=== PATIENT | female | born 1950 | race Caucasian/White ===

== ENCOUNTER 2017-09-21 12:00 | Observation (INO) | payer OTHER, SELFPAY ==
--- OUTSIDE RECORDS SUMMARY | 2017-09-21 12:03 | XMS REPORT | Clinical Summary ---
:1950 Author Organization [facility] Address [address] [place] [address] Care Team Providers Name Role Phone Brandon Mullins MD Primary Care Provider Allergies Active Allergy Reactions Severity Noted Date Comments Codeine Other (See Comments) High 07/17/2017 nausea Penicillins Rash Low 07/17/2017 Current Medications Prescription Sig. Disp. Refills Start Date End Date Status oxybutynin (DITROPAN) 06/08/2017 Active 5 MG tablet ipratropium-albuterol 06/08/2017 Active (DUO-NEB) 0.5-2.5 mg/mL nebulizer venlafaxine XR 06/08/2017 Active (EFFEXOR XR) 37.5 MG 24 hr capsule oxyCODone 06/13/2017 Active (ROXICODONE) 10 MG tablet atorvastatin Take 10 mg by Active (LIPITOR) 10 MG mouth daily. tablet ondansetron (ZOFRAN) Take 4 mg by Active 4 MG tablet mouth every 8 (eight) hours as needed for nausea or vomiting. metoprolol tartrate Take 0.5 30 tablet 0 09/09/2017 10/09/2017 Active (LOPRESSOR) 25 mg tablets (12.5 tablet mg total) by mouth 2 (two) times a day for 30 days. gabapentin Take 1 capsule 21 capsule 0 09/09/2017 09/16/2017 (NEURONTIN) 300 mg (300 mg total) capsule by mouth 3 (three) times a day for 7 days. Active Problems Problem Noted Date Malignant neoplasm of upper lobe of right lung 09/07/2017 Accelerated hypertension 09/07/2017 History of stroke 09/07/2017 History of CAB 09/07/2017 Adenocarcinoma of right lung 09/07/2017 s/p RUL wedge resection with MLND and lysis of adhesions 09/07/2017 Rheumatoid arthritis Overview: severe Encounters Date Type Specialty Care Team Description 09/14/2017 Telephone Cardiothoracic Surgery Lilliana Ch MA 09/10/2017 Telephone Cardiothoracic Surgery Gabrielle Lyman, LUIS ALBERTO 09/09/2017 Patient Outreach Quality Gay Holden RN 09/07/2017 Hospital Cardiology Mustapha David Malignant neoplasm - Encounter MD Jethro of upper lobe of 09/09/2017 right lung 09/07/2017 Anesthesia Event Cardiothoracic Surgery Noel Perkins MD 09/07/2017 Procedure Pass Cardiothoracic Surgery 09/07/2017 Surgery Cardiothoracic Surgery Mustapha David RIGHT ROBOTIC MD Jethro ASSISTED THORACOSCOPIC RIGHT UPPER LOBE WEDGE RESECTION, MEDIASTINAL LYMPH NODE DISSECTION, LYSIS OF ADHESION 09/05/2017 [facility] Gastroenterology Vilma Holden Non-intractable Encounter MD Rachel vomiting with nausea, unspecified vomiting type (Primary Dx) 09/05/2017 Anesthesia Event Gastroenterology Jethro Crenshaw MD 09/05/2017 Procedure Pass Gastroenterology 09/05/2017 Surgery Gastroenterology Vilma Holden MD 09/03/2017 Telephone Cardiothoracic Surgery Gabrielle Lyman, AMBULATORY CARE 08/30/2017 [facility] Cardiothoracic Surgery Mustapha David Encounter MD Jethro 08/30/2017 Transcribe Orders Cardiothoracic Surgery Mustapha David Nausea and vomiting, MD Jethro intractability of vomiting not specified, unspecified vomiting type (Primary Dx) 08/30/2017 Anesthesia Event Cardiothoracic Surgery Bautista St MD 08/30/2017 Procedure Pass Cardiothoracic Surgery 08/30/2017 Surgery Cardiothoracic Surgery Mustapha David Canceled RIGHT MD Jethro ROBOTIC ASSISTED THORACOSCOPIC, RIGHT UPPER LOBE LOBECTOMY, MEDIASTINAL LYMPH NODE DISSECTION 08/29/2017 Telephone Cardiothoracic Surgery Gabrielle Lyman, AMBULATORY CARE 08/27/2017 Telephone General Surgery Mustapha David MD 08/21/2017 Lab Lab Mustapha David Malignant neoplasm of upper lobe of right lung; MD Jethro LAD (lymphadenopathy), axillary; Nonintractable headache, unspecified chronicity pattern, unspecified headache type; Pre-op testing 08/21/2017 Office Visit General Surgery June Angel MD (Primary Dx) 08/21/2017 Orders Only Cardiothoracic Surgery Lucia Modi MD 08/17/2017 Hospital Radiology Mustapha David Lung nodule Encounter MD Jethro 08/17/2017 Office Visit Cardiothoracic Surgery Mustapha David Malignant neoplasm of upper lobe of right lung (Primary Dx); MD Jethro LAD (lymphadenopathy), axillary; Nonintractable headache, unspecified chronicity pattern, unspecified headache type; Pre-op testing 08/17/2017 Ancillary Orders Cardiothoracic Surgery Mustapha David Lung nodule MD Jethro 08/16/2017 Orders Only Cardiothoracic Surgery Lucia Modi MD 08/13/2017 Hospital Radiology Natalio Aden Encounter MD Micha (lymphadenopathy), axillary 08/13/2017 Hospital Radiology Natalio Aden Encounter MD Micha (lymphadenopathy), axillary 08/13/2017 Hospital Radiology Natalio Aden Encounter MD Micha (lymphadenopathy), axillary 08/13/2017 Hospital Radiology Mustapha David Lung mass (Primary Dx); Encounter MD Jethro LAD (lymphadenopathy), axillary 08/13/2017 Ancillary Orders Cardiothoracic Surgery JoannMustapha LAD MD Jethro (lymphadenopathy), axillary 08/09/2017 Hospital Radiology Mustapha David Canceled (Patient) Encounter MD Jethro 08/09/2017 Telephone Cardiothoracic Surgery Gricelda Sidhu MA 08/06/2017 Telephone Cardiothoracic Surgery Aidee Tanner MA 08/02/2017 Transcribe Orders Cardiothoracic Surgery Mustapha David Visit for screening MD Jethro mammogram (Primary Dx) 08/02/2017 Telephone Radiology Evette Monsivais, WESLEY 08/01/2017 Transcribe Orders Cardiothoracic Surgery Mustapha David Lung nodule ( Primary Dx); MD Jethro LAD (lymphadenopathy), axillary 07/31/2017 Lab Lab Mustapha David Lung nodule; MD Jethro Axillary lymphadenopathy; Pre-operative laboratory examination; SOB (shortness of breath) 07/31/2017 Hospital Radiology Mustapha David Encounter MD Jethro 07/31/2017 Office Visit Cardiothoracic Surgery Mustapha David Lung nodule ( Primary Dx); MD Jethro Axillary lymphadenopathy; Pre-operative laboratory examination; SOB (shortness of breath) 07/31/2017 Ancillary Orders Radiology Mustapha David MD 07/31/2017 Orders Only Cardiothoracic Surgery Lucia Modi MD 07/30/2017 Orders Only Cardiothoracic Surgery Lucia Modi MD 07/19/2017 Telephone Cardiothoracic Surgery Gabrielle Lyman, LUIS ALBERTO 07/19/2017 Telephone Cardiothoracic Surgery Aidee Tanner MA 07/18/2017 Transcribe Orders Cardiothoracic Surgery Mustapha David Lung nodule ( Primary MD Jethro Dx) 07/18/2017 Telephone Cardiothoracic Surgery Gabrielle Lyman, LUIS ALBERTO 07/18/2017 Telephone Cardiothoracic Surgery Gabrielle Lyman, LUIS ALBERTO 07/17/2017 Hospital Radiology Mustapha David MD 07/17/2017 Office Visit Cardiothoracic Surgery Joann Mustapha Lung nodule ( Primary MD Jethro Dx) 07/17/2017 Ancillary Orders Radiology Mustapha David MD 07/13/2017 Orders Only Cardiothoracic Surgery Lucia Modi MD after 09/20/2016 Family History Medical History Relation Name Comments Hypertension Father Heart attack Maternal Grandmother Hypertension Mother Arthritis Sister Relation Name Status Comments Father Maternal Grandmother Mother Sister fibromyalgia Social History Tobacco Use Types Packs/Day Years Used Date Current Every Day Smoker Cigarettes 1.5 50 Smokeless Tobacco: Never Used Tobacco Cessation: Counseling Given: Yes Comments: trying to quit Alcohol Use Drinks/Week oz/Week Comments No Sex Assigned at Date Recorded Not on file Last Filed Vital Signs Vital Sign Reading Time Taken Blood Pressure 142/66 09/09/2017 6:56 AM CDT Pulse 63 09/09/2017 6:56 AM CDT Temperature 36.7 C (98.1 F) 09/09/2017 6:56 AM CDT Respiratory Rate 15 09/09/2017 6:56 AM CDT Oxygen Saturation 90% 09/09/2017 6:56 AM CDT Inhaled Oxygen Concentration - - Weight 70.3 kg (155 lb) 09/09/2017 5:35 AM CDT Height 165.1 cm (5' 5") 09/07/2017 10:10 AM CDT Body Mass Index 25.79 09/09/2017 5:35 AM CDT Plan of Treatment Date Type Specialty Care Team Description 10/16/2017 Office Visit Cardiothoracic Surgery Mustapha David MD [address] [facility] [address] [place] [address] Gabrielle Lyman, AMBULATORY CARE [address] [facility] [address] [place] [address] Health Maintenance Due Date Last Done Comments BREAST CANCER SCREENING 1998 COLON CANCER SCREENING 1998 SHINGRIX VACCINE (#1) 1998 ZOSTER VACCINE 2008 PNEUMOCOCCAL POLYSACCHARIDE VACCINE AGE 65 AND OVER 2013 PNEUMOCOCCAL-13 2013 INFLUENZA VACCINE 09/19/2017 Implants Implanted Type Area Pottery Striper Device Expiration Model / Identifier Date Serial / Lot Kit Selnt Fibrin [facility] [facility] 5ml Evicel - [id number] Surgical N/A: N/A ETHICON - 03/21/2019 [id number] / Implanted: 09/07/2017 (Quantity not on file) Implants; / Expanders; [id number] Extenders; Surgical Wires Procedures Procedure Name Priority Date/Time Associated Comments Diagnosis XR CHEST 1 VW PORTABLE Routine 09/09/2017 Results for 6:33 AM CDT this procedure are in the results section. ESTIMATED GFR Routine 09/09/2017 Results for 6:05 AM CDT this procedure are in the results section. MAGNESIUM LEVEL Routine 09/09/2017 Results for 6:05 AM CDT this procedure are in the results section. CBC HEMOGRAM Routine 09/09/2017 Results for 6:05 AM CDT this procedure are in the results section. BASIC METABOLIC PANEL Routine 09/09/2017 Results for 6:05 AM CDT this procedure are in the results section. POC GLUCOSE Routine 09/08/2017 Results for 5:17 PM CDT this procedure are in the results section. XR CHEST 1 VW PORTABLE Routine 09/08/2017 Results for 11:18 AM CDT this procedure are in the results section. POC GLUCOSE Routine 09/08/2017 Results for 7:25 AM CDT this procedure are in the results section. XR CHEST 1 VW PORTABLE Routine 09/08/2017 Results for 6:12 AM CDT this procedure are in the results section. ESTIMATED GFR Routine 09/08/2017 Results for 3:05 AM CDT this procedure are in the results section. PHOSPHORUS LEVEL Routine 09/08/2017 Results for 3:05 AM CDT this procedure are in the results section. MAGNESIUM LEVEL Routine 09/08/2017 Results for 3:05 AM CDT this procedure are in the results section. IONIZED CALCIUM Routine 09/08/2017 Results for 3:05 AM CDT this procedure are in the results section. BASIC METABOLIC PANEL Routine 09/08/2017 Results for 3:05 AM CDT this procedure are in the results section. PROTHROMBIN TIME WITH INR Routine 09/08/2017 Results for 2:21 AM CDT this procedure are in the results section. PARTIAL THROMBOPLASTIN TIME Routine 09/08/2017 Results for (PTT) 2:21 AM CDT this procedure are in the results section. CBC HEMOGRAM Routine 09/08/2017 Results for 2:21 AM CDT this procedure are in the results section. POC GLUCOSE Routine 09/07/2017 Results for 11:43 PM CDT this procedure are in the results section. POC GLUCOSE Routine 09/07/2017 Results for 10:04 PM CDT this procedure are in the results section. ESTIMATED GFR STAT 09/07/2017 Results for 9:45 PM CDT this procedure are in the results section. TYPE AND SCREEN STAT 09/07/2017 Results for 9:45 PM CDT this procedure are in the results section. PROTHROMBIN TIME WITH INR STAT 09/07/2017 Results for 9:45 PM CDT this procedure are in the results section. PHOSPHORUS LEVEL STAT 09/07/2017 Results for 9:45 PM CDT this procedure are in the results section. PARTIAL THROMBOPLASTIN TIME STAT 09/07/2017 Results for (PTT) 9:45 PM CDT this procedure are in the results section. MAGNESIUM LEVEL STAT 09/07/2017 Results for 9:45 PM CDT this procedure are in the results section. IONIZED CALCIUM STAT 09/07/2017 Results for 9:45 PM CDT this procedure are in the results section. FIBRINOGEN STAT 09/07/2017 Results for 9:45 PM CDT this procedure are in the results section. CBC HEMOGRAM STAT 09/07/2017 Results for 9:45 PM CDT this procedure are in the results section. BASIC METABOLIC PANEL STAT 09/07/2017 Results for 9:45 PM CDT this procedure are in the results section. XR CHEST 1 VW PORTABLE STAT 09/07/2017 Results for 5:14 PM CDT this procedure are in the results section. GLUCOSE LEVEL, SYRINGE STAT 09/07/2017 Results for 3:40 PM CDT this procedure are in the results section. HEMOGLOBIN, SYRINGE STAT 09/07/2017 Results for 3:40 PM CDT this procedure are in the results section. IONIZED CALCIUM, ARTERIAL STAT 09/07/2017 Results for 3:40 PM CDT this procedure are in the results section. POTASSIUM, SYRINGE STAT 09/07/2017 Results for 3:40 PM CDT this procedure are in the results section. SODIUM LEVEL, SYRINGE STAT 09/07/2017 Results for 3:40 PM CDT this procedure are in the results section. ARTERIAL BLOOD GAS, CORRECTED STAT 09/07/2017 Results for 3:40 PM CDT this procedure are in the results section. SURGICAL PATHOLOGY REQUEST Routine 09/07/2017 Results for 2:39 PM CDT this procedure are in the results section. GLUCOSE LEVEL, SYRINGE STAT 09/07/2017 Results for 2:13 PM CDT this procedure are in the results section. HEMOGLOBIN, SYRINGE STAT 09/07/2017 Results for 2:13 PM CDT this procedure are in the results section. IONIZED CALCIUM, ARTERIAL STAT 09/07/2017 Results for 2:13 PM CDT this procedure are in the results section. POTASSIUM, SYRINGE STAT 09/07/2017 Results for 2:13 PM CDT this procedure are in the results section. SODIUM LEVEL, SYRINGE STAT 09/07/2017 Results for 2:13 PM CDT this procedure are in the results section. ARTERIAL BLOOD GAS, CORRECTED STAT 09/07/2017 Results for 2:13 PM CDT this procedure are in the results section. ARTERIAL LINE Routine 09/07/2017 Results for 1:11 PM CDT this procedure are in the results section. AR AN ELECTIVE ENDOTRACHEAL Routine 09/07/2017 Results for AIRWAY 1:08 PM CDT this procedure are in the results section. SODIUM LEVEL, SYRINGE STAT 09/07/2017 Results for 12:35 PM CDT this procedure are in the results section. ARTERIAL BLOOD GAS, CORRECTED STAT 09/07/2017 Results for 12:35 PM CDT this procedure are in the results section. HEMOGLOBIN, SYRINGE STAT 09/07/2017 Results for 12:35 PM CDT this procedure are in the results section. IONIZED CALCIUM, ARTERIAL STAT 09/07/2017 Results for 12:35 PM CDT this procedure are in the results section. POTASSIUM, SYRINGE STAT 09/07/2017 Results for 12:35 PM CDT this procedure are in the results section. GLUCOSE LEVEL, SYRINGE STAT 09/07/2017 Results for 12:35 PM CDT this procedure are in the results section. SURGICAL PATHOLOGY REQUEST Routine 09/05/2017 Results for 9:43 AM CDT this procedure are in the results section. ESOPHAGOGASTRODUODENOSCOPY (EGD) 09/05/2017 Nausea & 9:00 AM CDT vomiting PREPARE RBC Routine 08/21/2017 Results for 2:50 PM CDT this procedure are in the results section. ESTIMATED GFR Routine 08/21/2017 Results for 2:50 PM CDT this procedure are in the results section. PARTIAL THROMBOPLASTIN TIME Routine 08/21/2017 Malignant Results for (PTT) 2:50 PM CDT neoplasm of this procedure upper lobe of are in the right lung results LAD section. (lymphadenopathy ), axillary Nonintractable headache, unspecified chronicity pattern, unspecified headache type Pre-op testing PROTHROMBIN TIME WITH INR Routine 08/21/2017 Malignant Results for 2:50 PM CDT neoplasm of this procedure upper lobe of are in the right lung results LAD section. (lymphadenopathy ), axillary Nonintractable headache, unspecified chronicity pattern, unspecified headache type Pre-op testing COMPREHENSIVE METABOLIC PANEL Routine 08/21/2017 Malignant Results for 2:50 PM CDT neoplasm of this procedure upper lobe of are in the right lung results LAD section. (lymphadenopathy ), axillary Nonintractable headache, unspecified chronicity pattern, unspecified headache type Pre-op testing TYPE AND SCREEN Routine 08/21/2017 Malignant Results for 2:50 PM CDT neoplasm of this procedure upper lobe of are in the right lung results LAD section. (lymphadenopathy ), axillary Nonintractable headache, unspecified chronicity pattern, unspecified headache type Pre-op testing HC COMPLETE BLD COUNT W/AUTO Routine 08/21/2017 Malignant Results for DIFF 2:50 PM CDT neoplasm of this procedure upper lobe of are in the right lung results LAD section. (lymphadenopathy ), axillary Nonintractable headache, unspecified chronicity pattern, unspecified headache type Pre-op testing CYTOLOGY (NON-GYNECOLOGICAL) Routine 08/17/2017 Results for REQUEST 12:54 PM CDT this procedure are in the results section. FLOW CYTOMETRY EVALUATION Routine 08/17/2017 Results for 12:54 PM CDT this procedure are in the results section. US NEEDLE BIOPSY Routine 08/17/2017 Lung nodule Results for 12:02 PM CDT this procedure are in the results section. MAMMO EXTERNAL STUDY Routine 08/16/2017 12:00 AM CDT XR CHEST 1 VW Routine 08/13/2017 LAD Results for 1:55 PM CDT (lymphadenopathy this procedure ), axillary are in the results section. SURGICAL PATHOLOGY REQUEST Routine 08/13/2017 Results for 11:41 AM CDT this procedure are in the results section. SURGICAL PATHOLOGY REQUEST Routine 08/13/2017 Results for 11:41 AM CDT this procedure are in the results section. SURGICAL PATHOLOGY REQUEST Routine 08/13/2017 Results for 11:41 AM CDT this procedure are in the results section. SURGICAL PATHOLOGY REQUEST Routine 08/13/2017 Results for 11:41 AM CDT this procedure are in the results section. XR CHEST 1 VW Routine 08/13/2017 LAD Results for 11:39 AM CDT (lymphadenopathy this procedure ), axillary are in the results section. CYTOLOGY (NON-GYNECOLOGICAL) Routine 08/13/2017 Results for REQUEST 11:14 AM CDT this procedure are in the results section. XR CHEST 1 VW Routine 08/13/2017 LAD Results for 10:46 AM CDT (lymphadenopathy this procedure ), axillary are in the results section. CT NEEDLE BIOPSY NO CONTRAST Routine 08/13/2017 LAD Results for 10:14 AM CDT (lymphadenopathy this procedure ), axillary are in the results section. PARTIAL THROMBOPLASTIN TIME Routine 07/31/2017 Lung nodule Results for (PTT) 11:59 AM CDT Axillary this procedure lymphadenopathy are in the Pre-operative results laboratory section. examination SOB (shortness of breath) PROTHROMBIN TIME WITH INR Routine 07/31/2017 Lung nodule Results for 11:59 AM CDT Axillary this procedure lymphadenopathy are in the Pre-operative results laboratory section. examination SOB (shortness of breath) HC COMPLETE BLD COUNT W/AUTO Routine 07/31/2017 Lung nodule Results for DIFF 11:59 AM CDT Axillary this procedure lymphadenopathy are in the Pre-operative results laboratory section. examination PET CT WHOLE BODY EXTERNAL STUDY Routine 07/26/2017 Results for 9:50 AM CDT this procedure are in the results section. PULMONARY FUNCTION TEST Routine 07/26/2017 12:00 AM CDT PULMONARY FUNCTION TEST Routine 07/26/2017 12:[address] SKULL BASE MID THIGH Routine 07/26/2017 EXTERNAL STUDY 12:[address] CHEST EXTERNAL STUDY Routine 06/07/2017 Results for 2:10 PM CDT this procedure are in the results section. CT CHEST EXTERNAL STUDY Routine 06/07/2017 12:00 AM CDT XR CHEST 2 VW Routine 06/04/2017 12:00 AM CDT after 09/20/2016 Results XR Chest 1 Vw Portable (09/09/2017 6:33 AM)Only the most recent of4 resultswithin the time period is included. Narrative Performed At EXAMINATION: XR CHEST 1 VW PORTABLE [facility] INDICATION: chest tube COMPARISON: Most recent prior IMPRESSION: Stable appearance of the heart and mediastinum. Prior sternotomy. Right apical pneumothorax is without significant interval change. Scarring and surgical clips in the region of the right lung apex. Interstitial changes of the left lung base likely represent atelectasis and without significant interval change. No visible left-sided pneumothorax. Subcutaneous emphysema along the right lower chest and abdominal wall. [facility]-[id number] Procedure Note [facility], Radiology Results Incoming - 09/09/2017 7:43 AM CDT EXAMINATION: XR CHEST 1 VW PORTABLE INDICATION: chest tube COMPARISON: Most recent prior IMPRESSION: Stable appearance of the heart and mediastinum. Prior sternotomy. Right apical pneumothorax is without significant interval change. Scarring and surgical clips in the region of the right lung apex. Interstitial changes of the left lung base likely represent atelectasis and without significant interval change. No visible left-sided pneumothorax. Subcutaneous emphysema along the right lower chest and abdominal wall. [id number] Performing Organization Address City/State/Zipcode Phone Number [facility] [address] [place] [address] Estimated GFR (09/09/2017 6:05 AM)Only the most recent of4 resultswithin the time period is included. GFR Non Af Amer 45 (A) mL/min/1.73 m2 [facility] DEPARTMENT OF PATHOLOGY AND GENOMIC MEDICINE GFR Af Amer 54 (A) mL/min/1.73 m2 [facility] DEPARTMENT OF Comment: PATHOLOGY AND GENOMIC Chronic kidney disease: <60 mL/min/1.73m2 MEDICINE Kidney failure: <15 mL/min/1.73m2 The estimated GFR is calculated from the IDMS-traceable Modification of Diet in Renal Disease Equation. The accuracy of the calculation is poor when the creatinine is normal. Calculated values >90 mL/min/1.73m2 are not reported. This equation has not been validated in children (<18 years), women, the elderly (>70 years), or ethnic groups other than Caucasians and Americans. Specimen Plasma specimen Performing Organization Address City/[facility]/Zipcode Phone Number [facility] DEPARTMENT OF PATHOLOGY AND [address] [place] [address] [employer] [facility] CBC hemogram (09/09/2017 6:05 AM)Only the most recent of3 resultswithin the time period is included. WBC 6.21 4.50 - 11.00 k/uL [facility] DEPARTMENT OF PATHOLOGY AND GENOMIC MEDICINE RBC 3.70 (L) 4.20 - 5.50 m/uL [facility] DEPARTMENT OF PATHOLOGY AND GENOMIC MEDICINE HGB 11.1 (L) 12.0 - 16.0 g/dL [facility] DEPARTMENT OF PATHOLOGY AND GENOMIC MEDICINE HCT 34.8 (L) 37.0 - 47.0 % [facility] DEPARTMENT OF PATHOLOGY AND GENOMIC MEDICINE MCV 94.1 82.0 - 100.0 fL [facility] DEPARTMENT OF PATHOLOGY AND GENOMIC MEDICINE MCH 30.0 27.0 - 34.0 pg [facility] DEPARTMENT OF PATHOLOGY AND GENOMIC MEDICINE MCHC 31.9 31.0 - 37.0 g/dL [facility] DEPARTMENT OF PATHOLOGY AND GENOMIC MEDICINE RDW - SD 48.5 37.0 - 55.0 fL [facility] DEPARTMENT OF PATHOLOGY AND GENOMIC MEDICINE MPV 10.4 8.8 - 13.2 fL [facility] DEPARTMENT OF PATHOLOGY AND GENOMIC MEDICINE Platelet count 191 150 - 400 k/uL [facility] DEPARTMENT OF PATHOLOGY AND GENOMIC MEDICINE Nucleated RBC 0.00 /100 WBC [facility] DEPARTMENT OF PATHOLOGY AND GENOMIC MEDICINE Specimen Blood Performing Organization Address [facility] Phone Number [facility] DEPARTMENT OF PATHOLOGY AND [address] [place], [place] [id number] [employer] [facility] Magnesium level (09/09/2017 6:05 AM)Only the most recent of3 resultswithin the time period is included. Magnesium 2.1 1.6 - 2.4 mg/dL [facility] DEPARTMENT OF PATHOLOGY AND GENOMIC MEDICINE Specimen Plasma specimen Performing Organization Address City/[facility] Phone Number [facility] PATHOLOGY AND [address] [place] [address] [employer] [facility] Basic metabolic panel (09/09/2017 6:05 AM)Only the most recent of3 resultswithin the time period is included. Sodium 137 135 - 148 mEq/L [facility] DEPARTMENT OF PATHOLOGY AND GENOMIC MEDICINE Potassium 4.5 3.5 - 5.0 mEq/L [facility] DEPARTMENT OF PATHOLOGY AND GENOMIC MEDICINE Chloride 101 98 - 112 mEq/L [facility] DEPARTMENT OF PATHOLOGY AND GENOMIC MEDICINE CO2 25 24 - 31 mEq/L [facility] DEPARTMENT OF PATHOLOGY AND GENOMIC MEDICINE Anion gap 11@ANIO 7 - 15 mEq/L [facility] DEPARTMENT OF PATHOLOGY AND GENOMIC MEDICINE BUN 26 (H) 8 - 23 mg/dL [facility] DEPARTMENT OF PATHOLOGY AND GENOMIC MEDICINE Creatinine 1.2 (H) 0.5 - 0.9 mg/dL [facility] DEPARTMENT OF PATHOLOGY AND GENOMIC MEDICINE Glucose 89 65 - 99 mg/dL [facility] DEPARTMENT OF PATHOLOGY AND GENOMIC MEDICINE Calcium 8.9 8.8 - 10.2 mg/dL [facility] DEPARTMENT OF PATHOLOGY AND GENOMIC MEDICINE Specimen Plasma specimen Performing Organization Address City/[facility] Phone Number [facility] DEPARTMENT OF PATHOLOGY AND [address] [place] [address] POC glucose (09/08/2017 5:17 PM)Only the most recent of4 resultswithin the time period is included. POC glucose 118 (H) 65 - 99 mg/dL [facility] DEPARTMENT OF PATHOLOGY AND Comment: GENOMIC MEDICINE [facility] Notified RN Meter ID: [id number] Drug And Alcohol Treatment Specialist: Maycol Dennis Performing Organization Address [facility] Phone Number [facility] DEPARTMENT OF PATHOLOGY AND [address] [place] [address] Phosphorus level (09/08/2017 3:05 AM)Only the most recent of2 resultswithin the time period is included. Phosphorus 3.5 2.4 - 4.5 mg/dL [facility] OF PATHOLOGY AND GENOMIC MEDICINE Specimen Plasma specimen Performing Organization Address City/[facility] Phone Number [facility] AND [address] [place] [address] Ionized calcium (09/08/2017 3:05 AM)Only the most recent of2 resultswithin the time period is included. pH 7.38 [facility] DEPARTMENT OF PATHOLOGY AND GENOMIC MEDICINE Ionized calcium 1.24 1.11 - 1.32 mmol/L [facility]MENT OF PATHOLOGY AND GENOMIC MEDICINE Specimen Plasma specimen Performing Organization Address City/[facility] Phone Number [facility] OF PATHOLOGY AND [address] [place] [address] Partial thromboplastin time, activated (09/08/2017 2:21 AM)Only the most recent of4 resultswithin the time period is included. PTT 32.0 23.0 - 36.0 sec [facility] PATHOLOGY Comment: AND [facility] PTT therapeutic range for unfractionated heparin is 61.0-112.0 seconds which corresponds to Anti-Xa 0.3-0.7 U/ml. Specimen Blood Performing Organization Address [facility] Phone Number [facility]MENT OF PATHOLOGY AND [address] [place] [address] Prothrombin time with INR (09/08/2017 2:21 AM)Only the most recent of4 resultswithin the time period is included. Prothrombin time 13.6 12.0 - 15.0 sec [facility] DEPARTMENT OF PATHOLOGY AND GENOMIC [facility] INR 1.0 [facility] DEPARTMENT OF Comment: PATHOLOGY AND GENOMIC The International Normalized Ratio (INR) is a therapeutic MEDICINE monitoring tool for patients who are stable on oral anticoagulant therapy. An INR of 2.0-3.0 is suggested for deep vein thrombosis/pulmonary embolism. Specimen Blood Performing Organization Address [facility] Phone Number [facility] OF PATHOLOGY AND [address] [place] [address] Fibrinogen (09/07/2017 9:45 PM) Fibrinogen 470 (H) 200 - 450 mg/dL [facility] DEPARTMENT OF PATHOLOGY AND GENOMIC MEDICINE Specimen Blood Performing Organization Address [facility] Number [facility] DEPARTMENT OF PATHOLOGY AND [address] [place] [address] GENOMIC MEDICINE Type and screen (09/07/2017 9:45 PM)Only the most recent of2 resultswithin the time period is included. ABO grouping A [facility] OF PATHOLOGY AND GENOMIC MEDICINE Rh type NEG [facility] OF PATHOLOGY AND GENOMIC MEDICINE Antibody screen (gel) NEG [facility] DE[facility]MENT OF PATHOLOGY AND GENOMIC [facility] Specimen Blood Performing Organization Address [facility] Phone Number [facility] OF PATHOLOGY AND [address] [place] [address] Sodium level, syringe (09/07/2017 3:40 PM)Only the most recent of3 resultswithin the time period is included. Sodium, syringe 136 135 - 148 mEq/L [facility] DEPARTMENT OF PATHOLOGY AND GENOMIC MEDICINE Specimen Blood Performing Organization Address City/[facility] Phone Number [facility] DEPARTMENT OF PATHOLOGY AND [address] [place] [address] Potassium, syringe (09/07/2017 3:40 PM)Only the most recent of3 resultswithin the time period is included. Potassium, syringe 4.6 3.5 - 5.0 mEq/L [facility] DEPARTMENT OF PATHOLOGY AND GENOMIC MEDICINE Specimen Blood Performing Organization Address City/[facility] Phone Number [facility] DEPARTMENT OF PATHOLOGY AND [address] [place] [address] Ionized calcium, arterial (09/07/2017 3:40 PM)Only the most recent of3 resultswithin the time period is included. Ionized calcium, arterial 1.20 1.11 - 1.32 mmol/L [facility] DEPARTMENT OF PATHOLOGY AND GENOMIC MEDICINE Specimen Blood Performing Organization Address [facility] Phone Number [facility] DEPARTMENT OF PATHOLOGY AND [address] [place] [address] Hemoglobin, syringe (09/07/2017 3:40 PM)Only the most recent of3 resultswithin the time period is included. Hemoglobin, syringe 12.5 12.0 - 16.0 g/dL [facility] DE[facility]MENT OF PATHOLOGY AND GENOMIC MEDICINE Specimen Blood Performing Organization Address [facility] Phone Number [facility] DE[facility]MENT OF PATHOLOGY AND [address] [place] [address] Glucose level, syringe (09/07/2017 3:40 PM)Only the most recent of3 resultswithin the time period is included. Glucose, syringe 114 (H) 65 - 99 mg/dL [facility] DE[facility]MENT OF PATHOLOGY AND GENOMIC MEDICINE Specimen Blood Performing Organization Address [facility] Phone Number [facility] DE[facility]MENT OF PATHOLOGY AND [address] [place] [address] Arterial blood gas, corrected (09/07/2017 3:40 PM)Only the most recent of3 resultswithin the time period is included. pH, arterial 7.35 7.35 - 7.45 [facility] DEPARTMENT OF PATHOLOGY AND GENOMIC MEDICINE pCO2, arterial 43 35 - 45 mmHg [facility] DE[facility]MENT OF PATHOLOGY AND GENOMIC MEDICINE pO2, arterial 148 (H) 80 - 90 mmHg [facility] DEPARTMENT OF PATHOLOGY AND GENOMIC MEDICINE Temperature, Celsius 37.0 Degrees C [facility] DEPARTMENT OF PATHOLOGY AND GENOMIC MEDICINE O2 saturation, arterial 99 95 - 100 % [facility] DEPARTMENT OF PATHOLOGY AND GENOMIC MEDICINE pH, arterial corrected 7.35 [facility] DEPARTMENT OF PATHOLOGY AND GENOMIC MEDICINE pCO2, arterial corrected 43 mmHg [facility] DEPARTMENT OF PATHOLOGY AND GENOMIC MEDICINE pO2, arterial corrected 148 mmHg [facility] DE[facility]MENT OF PATHOLOGY AND GENOMIC MEDICINE Base excess, arterial -2 -2 - 2 mEq/L [facility] DEPARTMENT OF PATHOLOGY AND GENOMIC MEDICINE Specimen Blood Performing Organization Address City/[facility] Phone Number [facility] DEPARTMENT OF PATHOLOGY AND [address] [place] [address] GENOMIC MEDICINE Surgical pathology request (09/07/2017 2:39 PM)Only the most recent of6 resultswithin the time period is included. [facility] DE[facility]MENT OF PATHOLOGY AND GENOMIC MEDICINE Surgical pathology report See link below for PDF [facility] DEPARTMENT OF Lab Report PATHOLOGY AND GENOMIC MEDICINE Result status This is Final Report to [facility] DEPARTMENT OF [id number] PATHOLOGY AND GENOMIC MEDICINE Performing Organization Address City/[facility] Phone Number [facility] DEPARTMENT OF PATHOLOGY AND [address] [place] [address] Arterial line (09/07/2017 1:11 PM) Narrative Performed At [facility] MD 09/07/20171:11 PM Arterial line Performed by: BAUTISTA ST Authorized by: KELLE MCKEON Patient Location:OR Staff: Anesthesiologist:KELLE MCKEON Resident/HEALTHCARE SOCIAL WORKER/AA:BA[address]ISTA ST MSBT: antiseptic used and cap/gown used by other personnel Indications: Indications: multiple ABGs and hemodynamic monitoring Anesthesia: Anesthesia:General Procedure Details: Arterial Line placement:Placed post induction Line placement site:Radial Line placement side:Left Arterial line gauge:20 G Number of attempts:1 Post-procedure: Post-procedure:Sterile dressing applied Post procedure circulation, sensation, movement:Normal Patient tolerance:Patient tolerated the procedure well with no immediate complications ANESTHESIA INTUBATION (09/07/2017 1:08 PM) Narrative Performed At [facility] MD 09/07/20171:11 PM Airway Performed by: BAUTISTA ST Authorized by: KELLE MCKEON Location:OR Urgency:Elective Difficult Airway: No Anesthesiologist:KELLE MCKEON Resident/HEALTHCARE SOCIAL WORKER/AA:BAUTISTA ST Preoxygenated with 100% O2: Yes Mask Ventilation:Not attempted Final Airway Type:Endotracheal airway Final Endotracheal Airway:ETT - double lumen left Technique Used:Direct laryngoscopy Blade Type:Soares Laryngoscope Blade/Videolaryngoscope Blade Size:2 ETT Double Lumen (fr):37 Laryngoscopic view:Grade I - full view of glottis Number of Attempts at Approach:1 CBC with platelet and differential (08/21/2017 2:50 PM)Only the most recent of2 resultswithin the time period is included. WBC 5.33 4.50 - 11.00 k/uL [facility] DEPARTMENT OF PATHOLOGY AND GENOMIC MEDICINE RBC 4.12 (L) 4.20 - 5.50 m/uL [facility] DEPARTMENT OF PATHOLOGY AND GENOMIC MEDICINE HGB 12.3 12.0 - 16.0 g/dL [facility] DEPARTMENT OF PATHOLOGY AND GENOMIC MEDICINE HCT 38.4 37.0 - 47.0 % [facility] DEPARTMENT OF PATHOLOGY AND GENOMIC MEDICINE MCV 93.2 82.0 - 100.0 fL [facility] DEPARTMENT OF PATHOLOGY AND GENOMIC MEDICINE MCH 29.9 27.0 - 34.0 pg [facility] DEPARTMENT OF PATHOLOGY AND GENOMIC MEDICINE MCHC 32.0 31.0 - 37.0 g/dL [facility] DEPARTMENT OF PATHOLOGY AND GENOMIC MEDICINE RDW - SD 45.2 37.0 - 55.0 fL [facility] DEPARTMENT OF PATHOLOGY AND GENOMIC MEDICINE MPV 10.3 8.8 - 13.2 fL [facility] DEPARTMENT OF PATHOLOGY AND GENOMIC MEDICINE Platelet count 183 150 - 400 k/uL [facility] DEPARTMENT OF PATHOLOGY AND GENOMIC MEDICINE Nucleated RBC 0.00 /100 WBC [facility] DEPARTMENT OF PATHOLOGY AND GENOMIC MEDICINE Neutrophils 57.5 39.0 - 69.0 % [facility] DEPARTMENT OF PATHOLOGY AND GENOMIC MEDICINE Lymphocytes 31.3 25.0 - 45.0 % [facility] DEPARTMENT OF PATHOLOGY AND GENOMIC MEDICINE Monocytes 6.8 0.0 - 10.0 % [facility] DEPARTMENT OF PATHOLOGY AND GENOMIC MEDICINE Eosinophils 3.4 0.0 - 5.0 % [facility] DEPARTMENT OF PATHOLOGY AND GENOMIC MEDICINE Basophils 0.8 0.0 - 1.0 % [facility] DEPARTMENT OF PATHOLOGY AND GENOMIC MEDICINE Immature granulocytes 0.2Comment: 0.0 - 1.0 % [facility] DEPARTMENT OF "Immature PATHOLOGY AND GENOMIC granulocytes" MEDICINE (promyelocytes, myelocytes, metamyelocytes) Specimen Blood Performing Organization Address City/State/Zipcode Phone Number [facility] DEPARTMENT OF PATHOLOGY AND [address] [place] [address] [employer] [facility] Prepare RBC (08/21/2017 2:50 PM) Product name Apheresis Red Cell AS3 #1 LR [facility] DEPARTMENT OF PATHOLOGY AND GENOMIC MEDICINE Unit number [id number] [facility] DEPARTMENT OF PATHOLOGY AND GENOMIC MEDICINE Product code [id number] [facility] DEPARTMENT OF PATHOLOGY AND GENOMIC MEDICINE Dispense status Returned to BB not [facility] DEPARTMENT OF transfused PATHOLOGY AND GENOMIC MEDICINE Blood expiration date [facility] DE[facility]MENT OF PATHOLOGY AND GENOMIC MEDICINE Blood type code 0600 [facility] DEPARTMENT OF PATHOLOGY AND GENOMIC MEDICINE Blood type A NEGATIVE [facility] DEPARTMENT OF PATHOLOGY AND GENOMIC MEDICINE Product name Red Blood Cells -1, [facility] DEPARTMENT OF Leukored PATHOLOGY AND GENOMIC MEDICINE Unit number [id number] [facility] DEPARTMENT OF PATHOLOGY AND GENOMIC MEDICINE Product code [id number] [facility] DEPARTMENT OF PATHOLOGY AND GENOMIC MEDICINE Dispense status Returned to not [facility] DEPARTMENT OF transfused PATHOLOGY AND GENOMIC MEDICINE Blood expiration date [facility] DE[facility]MENT OF PATHOLOGY AND GENOMIC MEDICINE Blood type code 0600 [facility] DEPARTMENT OF PATHOLOGY AND GENOMIC MEDICINE Blood type A NEGATIVE [facility] DEPARTMENT OF PATHOLOGY AND GENOMIC MEDICINE Performing Organization Address City/State/Zipcode Phone Number [facility] DEPARTMENT OF PATHOLOGY AND [address] [place] [address] [employer] [facility] Comprehensive metabolic panel (08/21/2017 2:50 PM) Sodium 140 135 - 148 mEq/L [facility] DEPARTMENT OF PATHOLOGY AND GENOMIC MEDICINE Potassium 3.6 3.5 - 5.0 mEq/L [facility] DEPARTMENT OF PATHOLOGY AND GENOMIC MEDICINE Chloride 101 98 - 112 mEq/L [facility] DEPARTMENT OF PATHOLOGY AND GENOMIC MEDICINE CO2 29 24 - 31 mEq/L [facility] DEPARTMENT OF PATHOLOGY AND GENOMIC MEDICINE Anion gap 10@ANIO 7 - 15 mEq/L [facility] DEPARTMENT OF PATHOLOGY AND GENOMIC MEDICINE BUN 14 8 - 23 mg/dL [facility] DEPARTMENT OF PATHOLOGY AND GENOMIC MEDICINE Creatinine 0.9 0.5 - 0.9 mg/dL [facility] DEPARTMENT OF PATHOLOGY AND GENOMIC MEDICINE Glucose 75 65 - 99 mg/dL [facility] DEPARTMENT OF PATHOLOGY AND GENOMIC MEDICINE Calcium 9.2 8.8 - 10.2 mg/dL [facility] DEPARTMENT OF PATHOLOGY AND GENOMIC MEDICINE Protein 7.1 6.3 - 8.3 g/dL [facility] DEPARTMENT OF Comment: PATHOLOGY AND GENOMIC 4.6-7.0 g/dL MEDICINE 1 week 4.4-7.6 g/dL 7 months-1year5.1-7.3 g/dL 1-2 years5.6-7.5 g/dL >3 years6.0-8.0 g/dL 18-150 6.3-8.3 g/dL Albumin 3.0 (L) 3.5 - 5.0 g/dL [facility] DEPARTMENT OF PATHOLOGY AND GENOMIC MEDICINE A/G ratio 0.7 0.7 - 3.8 [facility] DEPARTMENT OF PATHOLOGY AND GENOMIC MEDICINE Alkaline phosphatase 78 35 - 104 U/L [facility] DEPARTMENT OF PATHOLOGY AND GENOMIC MEDICINE AST 16 10 - 35 U/L [facility] DEPARTMENT OF PATHOLOGY AND GENOMIC MEDICINE ALT 8 5 - 50 U/L [facility] DEPARTMENT OF PATHOLOGY AND GENOMIC MEDICINE Total bilirubin 0.3 0.0 - 1.2 mg/dL [facility] DEPARTMENT OF PATHOLOGY AND GENOMIC MEDICINE Specimen Plasma specimen Performing Organization Address City/[facility] Phone Number [facility] DEPARTMENT OF PATHOLOGY AND [address] [place] [address] GENOMIC MEDICINE Flow cytometry evaluation (08/17/2017 12:54 PM) [facility] DEPARTMENT OF PATHOLOGY AND GENOMIC MEDICINE Flow cytometry evaluation See link below for PDF [facility] DEPARTMENT OF Lab Report PATHOLOGY AND GENOMIC MEDICINE Performing Organization Address City/[facility] Phone Number [facility] DEPARTMENT OF PATHOLOGY AND [address] [place] [address] GENOMIC MEDICINE Cytology (non-gynecological) request (08/17/2017 12:54 PM)Only the most recent of2 resultswithin the time period is included. [facility] DEPARTMENT OF PATHOLOGY AND GENOMIC MEDICINE Cytology See link below for PDF [facility] DEPARTMENT OF (non-gynecological) report Lab Report PATHOLOGY AND GENOMIC MEDICINE Result status This is Final Report to [facility] DEPARTMENT OF [id number] PATHOLOGY AND GENOMIC MEDICINE Performing Organization Address City/[facility] Phone Number [facility] DEPARTMENT OF PATHOLOGY AND [address] [place] [address] GENOMIC MEDICINE US Needle Biopsy (08/17/2017 12:02 PM) Narrative Performed At EXAMINATION:US NEEDLE BIOPSY [facility] CLINICAL HISTORY:R91.1 pulmonary nodule, suspected lung cancer, FDG avid lymph node in right axilla TECHNIQUE:The risks, benefits, and alternatives were discussed with the patient and written informed consent was obtained. There is a dominant right axillary lymph node measuring 1.2 x 2.2 cm corresponding to the right axillary lymph node with increased FDG uptake seen on recent outside study. The lymph node demonstrates fatty hilum as seen on prior study. This lymph node was localized with ultrasound. A site for needle entry was selected and the skin was prepped and draped in the usual sterile fashion. 1% buffered lidocaine was administered for local anesthesia. Using ultrasound guidance, multiple 25-gauge fine-needle biopsies were obtained. The specimens were reviewed with pathology and were deemed adequate. The patient was discharged to the radiology recovery area for monitoring prior to discharge. They have been instructed to follow-up with MUSTAPHA DAVID for the results of the biopsy. Conscious sedation: None. EBL: None. Complications: None. Assistants: None. IMPRESSION: Ultrasound-guided right axillary lymph node biopsy. [facility]-[id number] Procedure Note Hm Interface, Radiology Results Incoming - 08/17/2017 12:21 PM CDT EXAMINATION: US NEEDLE BIOPSY CLINICAL HISTORY: R91.1 pulmonary nodule, suspected lung cancer, FDG avid lymph node in right axilla TECHNIQUE: The risks, benefits, and alternatives were discussed with the patient and written informed consent was obtained. There is a dominant right axillary lymph node measuring 1.2 x 2.2 cm corresponding to the right axillary lymph node with increased FDG uptake seen on recent outside study. The lymph node demonstrates fatty hilum as seen on prior study. This lymph node was localized with ultrasound. A site for needle entry was selected and the skin was prepped and draped in the usual sterile fashion. 1% buffered lidocaine was administered for local anesthesia. Using ultrasound guidance, multiple 25-gauge fine-needle biopsies were obtained. The specimens were reviewed with pathology and were deemed adequate. The patient was discharged to the radiology recovery area for monitoring prior to discharge. They have been instructed to follow-up with [facility]AP[facility] DAVID for the results of the biopsy. Conscious sedation: None. EBL: None. Complications: None. Assistants: None. IMPRESSION: Ultrasound-guided right axillary lymph node biopsy. [facility]-[id number] Performing Organization Address City/State/Zipcode Phone Number [facility] [address] [place] [address] Mammo External Study (08/16/2017) Narrative Performed At XR Chest 1 Vw (08/13/2017 1:55 PM)Only the most recent of3 resultswithin the time period is included. Narrative Performed At EXAM: [facility] XR CHEST 1 VW INDICATION: R59.0 Localized enlarged lymph nodes, lung biopsy COMPARISON: Chest AP dated 08/13/2017 at 11:30 AM. IMPRESSION: Unchanged since prior exam. Sternal sutures. Mediastinal surgical clips. Findings adjustable coronary artery bypass graft. Surgical clips overlying the right lung apex and medial right upper quadrant. 1.7 cm maximal diameter mass right upper lung. Minimal linear opacity right midlung, discoid atelectasis versus thickening of minor fissure. Heart size is normal. Moderate atherosclerotic aortic arch. Minimal tortuosity descending thoracic aorta. Minimal degenerative changes thoracic spine. [facility]-[id number] Procedure Note Interface, Radiology Results Incoming - 08/13/2017 2:14 PM CDT EXAM: XR CHEST 1 VW INDICATION: R59.0 Localized enlarged lymph nodes, lung biopsy COMPARISON: Chest AP dated 08/13/2017 at 11:30 AM. IMPRESSION: Unchanged since prior exam. Sternal sutures. Mediastinal surgical clips. Findings adjustable coronary artery bypass graft. Surgical clips overlying the right lung apex and medial right upper quadrant. 1.7 cm maximal diameter mass right upper lung. Minimal linear opacity right midlung, discoid atelectasis versus thickening of minor fissure. Heart size is normal. Moderate atherosclerotic aortic arch. Minimal tortuosity descending thoracic aorta. Minimal degenerative changes thoracic spine. [facility]-[id number] Performing Organization Address City/State/Zipcode Phone Number [facility] [address] [place] [address] CT Needle Biopsy No Contrast (08/13/2017 10:14 AM) Narrative Performed At EXAMINATION:CT NEEDLE BIOPSY NO CONTRAST [facility] CLINICAL HISTORY:R59.0 Localized enlarged lymph nodes, right axillary lymphandenopathy COMPARISON:None. FINDINGS: IV conscious sedation was utilized, with Versed and fentanyl, with continual monitoring throughout the procedure by registered nurse. [id number] patient to physician sedation time was 18 minutes. Following sterile skin preparation and local anesthesia and utilizing CT fluoroscopic guidance, multiple core tissue samples were obtained and sent to pathology for further evaluation. An adequacy check was performed. The patient tolerated the procedure well. IMPRESSION: Successful biopsy of a mass in the right upper lobe. [facility]-[id number] Procedure Note Hm Interface, Radiology Results Incoming - 08/13/2017 1:35 PM CDT EXAMINATION: CT NEEDLE BIOPSY NO CONTRAST CLINICAL HISTORY: R59.0 Localized enlarged lymph nodes, right axillary lymphandenopathy COMPARISON: None. FINDINGS: IV conscious sedation was utilized, with Versed and fentanyl, with continual monitoring throughout the procedure by registered nurse. [id number] patient to physician sedation time was 18 minutes. Following sterile skin preparation and local anesthesia and utilizing CT fluoroscopic guidance, multiple core tissue samples were obtained and sent to pathology for further evaluation. An adequacy check was performed. The patient tolerated the procedure well. IMPRESSION: Successful biopsy of a mass in the right upper lobe. [facility]-[id number] Performing Organization Address City/[facility]/Zipcode Phone Number [employer] [address] [place] [address] PET/CT Whole Body External Study (07/26/2017 9:50 AM) Narrative Performed At This exam was not acquired at a [facility] facility and has not been [facility] interpreted by a [facility] Provider.The exam was imported into our imaging system for comparisons purposes. Performing Organization Address City/[facility] Phone Number [email or web address] [facility] [address] [place] [address] PET/CT Skull Base Mid Thigh External Study (07/26/2017) Narrative Performed At Pulmonary function tests, complete (07/26/2017) Narrative Performed At Pulmonary function tests, complete (07/26/2017) Narrative Performed At CT Chest External Study (06/07/2017 2:10 PM)Only the most recent of2 resultswithin the time period is included. Narrative Performed At This exam was not acquired at a [facility] facility and has not been [facility] interpreted by a [facility] Provider.The exam was imported into our imaging system for comparisons purposes. Performing Organization Address City/[facility]/Zipcode Phone Number [employer] [address] [place] [address] XR Chest 2 Vw (06/04/2017) Narrative Performed At after 09/20/2016 Insurance Payer Benefit Plan / Group Subscriber ID Type Phone Address MEDICARE MEDICARE PART A AND B xxxxxxxxxx Medicare [place], [place] Home: [address] [facility] [phone] [address]
[2017-09-21] MEDS ORDERED: IPRATROPIUM BROM 0.5MG/2.5ML ONE (12:35)
[2017-09-21] MEDS ORDERED: ALBUTEROL 2.5 MG/3 ML NEB SOL ONE (12:35)
[2017-09-21 12:53] LABS: Absolute Lymphocytes (CBC) 1.3 K/uL (0.7-4.9); Absolute Monocytes 0.4 K/uL (0.1-1.3); Absolute Neutrophil 5.5 K/uL (1.8-8.0); Basophils % 0.8 % (0-1.3); Eosinophils % 2.4 % (0-4.4); Hematocrit 36.3 % (36.0-45.0); Lymphocytes % 17.5 % (15.3-44.8); MCH 30.8 pg (27.0-35.0); MCV 90.9 fL (80-100); MPV 7.6 fL (7.6-11.3); Monocytes % 5.3 % (3.3-12.3); RBC Red Blood Cell Count 3.99 M/uL (3.86-4.86)
[2017-09-21 13:08] LABS: Potassium 4.1 mmol/L (3.5-5.1)
--- NOTE | 2017-09-21 13:10 | RAD REPORT ---
EXAM DESCRIPTION: RAD - Chest Single View - 09/21/2017 12:58 pm CLINICAL HISTORY: Dyspnea, recent partial right upper lobectomy for lung cancer COMPARISON: May 2017 TECHNIQUE: AP portable chest image was obtained 1247 hours . FINDINGS: No acute infiltrate, pleural fluid collection or other emergent right hemithorax finding. Minimal apical pneumothorax is suspected. This would not necessarily be unexpected given the recent m ajor intrathoracic surgery. By report the patient had an malignant mass removed from the right upper lung field. Focal parenchymal opacification in the medial right apex is seen believed to be part of t he scarring or postsurgical process. By patient report the mass was fully removed. No failure or volu me overload. Heart and vasculature are normal. Posterior right sixth and seventh rib fractures are pr esent probably part of the surgical procedure. No acute aortic findings suspected. IMPRESSION: Questionable small apical pneumothorax on the right. There is postsurgical scarring jade ge present. No pleural effusion, pulmonary edema or other significant chest finding.
--- NOTE | 2017-09-21 13:57 | RAD REPORT ---
EXAM DESCRIPTION: CT - Chest For Pe Angio - 09/21/2017 1:37 pm CLINICAL HISTORY: Chest pain, shortness of breath, recent resection of a right apical mass. COMPARISON: Chest films same date, pre-surgical examination May 2017 TECHNIQUE: Dynamically enhanced 3 mm thick images of the chest were obtained during administration o f approximately 150mL Isovue 370 IV contrast. Coronal and oblique reconstruction images were generate d and reviewed. Exam utilizes a protocol to evaluate the pulmonary arterial tree. All CT scans are performed using dose optimization technique as appropriate and may include automated exposure control or mA/KV adjustment according to patient size. FINDINGS: No pulmonary emboli are identified. The aorta as imaged shows no acute or suspicious finding. No pericardial thickening or effusion. Approximately 2 centimeter x 1.5 centimeter area of irregular parenchymal opacification is present in the superior segment left lower lobe (image 43/89). This has not changed since May. Scarring is fa vored but continued monitoring is recommended due to a known malignant history. There is atelectasis in the left base. The irregular mass posterior right upper lobe has been resected since the prior study. There is posts urgical change, surgical clips and soft tissue nodularity in the right suprahilar chest extending to the posterior apex. Patient has an apical pneumothorax with air-fluid level present. Post oral latera l right sixth-eighth rib fractures are present probably part of the surgical procedure. No mediastinal or hilar suspicious masses. No chest wall masses or abnormal axillary lymphadenopathy. IMPRESSION: No pulmonary emboli identified. Small right apical hydropneumothorax. Postsurgical changes from partial lobectomy right upper lobe. There is postsurgical scarring and nodu larity in the right suprahilar region extending into the posterior right upper lung field. Small pleural effusion and atelectasis in the right lung base. Posterior right-sided rib fractures ar e probably part of the surgical procedure. Small focal parenchymal opacification in the superior segment left lower lobe stable from May but w arranting monitoring on follow-up exam in 4-6 months.
--- NOTE | 2017-09-21 14:35 | EDPHYS ---
Physician Documentation [facility] Name: Socorro Sutton Age: 66 yrs Sex: Female : 1950 Arrival Date: 09/21/2017 Time: 12:02 Bed 3 Private MD: Brandon Mullins V ED Physician Eric Mejía HPI: 09/21 13:18 This 66 yrs old Female presents to ER via Wheelchair with complaints of LOW jr8 O2, Breathing Difficulty. 13:18 The patient has shortness of breath at rest. Onset: The symptoms/episode began/occurred jr8 gradually, 1 day(s) ago. Duration: The symptoms are continuous. The patient's shortness of breath is aggravated by light activity. Associated signs and symptoms: The patient has no apparent associated signs or symptoms. Severity of symptoms: At their worst the symptoms were moderate in the emergency department the symptoms are unchanged. The patient has not experienced similar symptoms in the past. The patient has been recently seen by a physician:. Patient had partial right lobectomy done approximately 2 weeks ago. Stated that she has been in pain since then but worse today. Has had increased shortness of breath as well . Historical: - Allergies: 12:22 PENICILLINS; iw 12:22 Codeine (nausea ); iw - PMHx: 12:22 Myocardial infarction; CVA; COPD; Hypertension; Cancer, Lung; RA; iw - PSHx: 12:22 Hysterectomy; CABG; Lobectomy; iw - Immunization history:: Adult Immunizations not up to date. - Social history:: Smoking status: Patient uses tobacco products, smokes one-half pack cigarettes per day. - Ebola Screening: : Patient negative for fever greater than or equal to 101.5 degrees Fahrenheit, and additional compatible Ebola Virus Disease symptoms Patient denies exposure to infectious person Patient denies travel to an Ebola-affected area in the 21 days before illness onset No symptoms or risks identified at this time. ROS: 13:20 Eyes: Negative for injury, pain, redness, and discharge, ENT: Negative for injury, jr8 pain, and discharge, Neck: Negative for injury, pain, and swelling, Abdomen/GI: Negative for abdominal pain, nausea, vomiting, diarrhea, and constipation, Back: Negative for injury and pain, MS/Extremity: Negative for injury and deformity, Skin: Negative for injury, rash, and discoloration, Neuro: Negative for headache, weakness, numbness, tingling, and seizure. 13:20 Cardiovascular: Positive for chest pain, Negative for edema, orthopnea, palpitations, paroxysmal nocturnal dyspnea. 13:20 Respiratory: Positive for shortness of breath. Exam: 13:20 Eyes: Pupils equal round and reactive to light, extra-ocular motions intact. Lids and jr8 lashes normal. Conjunctiva and sclera are non-icteric and not injected. Cornea within normal limits. Periorbital areas with no swelling, redness, or edema. ENT: Nares patent. No nasal discharge, no septal abnormalities noted. Tympanic membranes are normal and external auditory canals are clear. Oropharynx with no redness, swelling, or masses, exudates, or evidence of obstruction, uvula midline. Mucous membranes moist. Neck: Trachea midline, no thyromegaly or masses palpated, and no cervical lymphadenopathy. Supple, full range of motion without nuchal rigidity, or vertebral point tenderness. No Meningismus. Cardiovascular: Regular rate and rhythm with a normal S1 and S2. No gallops, murmurs, or rubs. Normal PMI, no JVD. No pulse deficits. Abdomen/GI: Soft, non-tender, with normal bowel sounds. No distension or tympany. No guarding or rebound. No evidence of tenderness throughout. Back: No spinal tenderness. No costovertebral tenderness. Full range of motion. Skin: Warm, dry with normal turgor. Normal color with no rashes, no lesions, and no evidence of cellulitis. MS/ Extremity: Pulses equal, no cyanosis. Neurovascular intact. Full, normal range of motion. Neuro: Awake and alert, GCS 15, oriented to person, place, time, and situation. Cranial nerves II-XII grossly intact. Motor strength 5/5 in all extremities. Sensory grossly intact. Cerebellar exam normal. Normal gait. 13:20 Chest/axilla: Inspection: surgical scars present to right lateral chest wall and posterior/lateral chest wall, Palpation: tenderness, that is moderate, of the right lateral posterior chest and right lateral anterior chest. 13:20 Respiratory: mild respiratory distress is noted, Respirations: tachypnea, Breath sounds: rhonchi, that are mild, are scattered. Vital Signs: 12:19 BP 141 / 53; Pulse 61; Resp 24 S; Pulse Ox 94% on R/A; Pain 8/10; iw 12:20 Temp 97.8(O); aa5 13:00 BP 113 / 58; Pulse 62; Resp 16 S; Pulse Ox 97% on 2 lpm NC; aa5 14:00 BP 109 / 54; Pulse 64; Resp 18 S; Pulse Ox 94% on 2 lpm NC; aa5 15:00 BP 140 / 51; Pulse 67; Resp 16; Pulse Ox 100% on 2 lpm NC; jl7 16:00 BP 122 / 50; Pulse 65; Resp 16 S; Pulse Ox 95% on 2 lpm NC; aa5 MDM: 12:20 Patient medically screened. cp 14:08 Data reviewed: vital signs, nurses notes, lab test result(s), EKG, radiologic studies, [facility] CT scan, plain films. Data interpreted: Pulse oximetry: on 2L(s) per nasal canula, is 97 %. Interpretation: normal. Counseling: I had a detailed discussion with the patient and/or guardian regarding: the historical points, exam findings, and any diagnostic results supporting the discharge/admit diagnosis, lab results, radiology results. 14:08 ED course: Called and left message for Dr. Mullins at 14:08. . [facility] 14:34 ED course: Got a hold of Dr. Mullins. Wants to obs overnight for pain and hydropneumo . [facility] 09/21 12:25 Order name: Basic Metabolic Panel; Complete Time: 13:13 [facility] 09/21 12:25 Order name: CBC with Diff; Complete Time: 13:08 [facility] 09/21 12:25 Order name: NT PRO-BNP; Complete Time: 13:13 [facility] 09/21 12:25 Order name: Blood Culture Adult (2) [facility] 09/21 16:57 Order name: Urine Dipstick--Ancillary (enter results) ag 09/21 16:58 Order name: Urine Dipstick-Ancillary; Complete Time: 17:00 [facility] 09/21 12:25 Order name: XRAY Chest (1 view); Complete Time: 13:13 [facility] 09/21 12:25 Order name: EKG; Complete Time: 12:26 [facility] 09/21 12:25 Order name: Cardiac monitoring; Complete Time: 12:26 [facility] 09/21 12:25 Order name: EKG - Nurse/Tech; Complete Time: 12:26 8 09/21 12:25 Order name: IV Saline Lock; Complete Time: 12:09/21 13:13 Order name: CT Chest For PE Angio; Complete Time: 14:03 09/21 14:37 Order name: Diet 2 Gm Sodium; Complete Time: 14:37 aa5 09/21 12:25 Order name: Labs collected and sent; Complete Time: 12:09/21 12:25 Order name: O2 Per Protocol; Complete Time: 12:09/21 12:25 Order name: O2 Sat Monitoring; Complete Time: 12:09/21 12:25 Order name: Urine Dipstick-Ancillary (obtain specimen); Complete Time: 16:44 jr Administered Medications: 12:30 Drug: Albuterol - atroVENT (3:1) (2.5 mg - 0.5 mg) 3 ml Route: Nebulizer; 12:50 Follow up: Response: No adverse reaction aa5 Disposition: 18:51 Co-signature as Attending Physician, Eric Mejía MD I agree with the assessment and kdr plan of care. Disposition: 09/21/17 14:35 Hospitalization ordered by Brandon Mullins for Observation. Preliminary diagnosis is Pneumothorax and air leak - Secondary lobectomy . - Bed requested for Telemetry/MedSurg (observation). - Status is Observation. aa5 - Condition is Stable. - Problem is new. - Symptoms have improved. UTI on Admission? No Signatures: Dispatcher [employer] [facility] Socorro Ball RN RN dw Rittger, Kevin, MD MD [facility] Agata Aguillon RN RN iw Calderon, Audri, RN RN aa5 Linus Hunt PA PA jr8 Luiz Espinal PA PA cp Corrections: (The following items were deleted from the chart) 15:58 14:35 Hospitalization Ordered by Brandon Mullins MD for Observation. Preliminary diagnosis dw is Pneumothorax and air leak - Secondary lobectomy . Bed requested for Telemetry/MedSurg (observation). Status is Observation. Condition is Stable. Problem is new. Symptoms have improved. UTI on Admission? No. jr8 17:01 15:58 09/21/2017 14:35 Hospitalization Ordered by Brandon Mullins MD for Observation. aa5 Preliminary diagnosis is Pneumothorax and air leak - Secondary lobectomy . Bed requested for Telemetry/MedSurg (observation). Status is Observation. Condition is Stable. Problem is new. Symptoms have improved. UTI on Admission? No. dw
--- NOTE | 2017-09-21 14:35 | ER ---
Nurse's Notes [facility] Name: Socorro Sutton Age: 66 yrs Sex: Female : 1950 Arrival Date: 09/21/2017 Time: 12:02 Bed 3 Private MD: Brandon Mullins V Diagnosis: Pneumothorax and air leak-Secondary lobectomy Presentation: 09/21 12:17 Presenting complaint: Child states: pt had partial lobectomy of right upper lobe X 2 iw weeks ago at [facility], cancer was fully removed, pt has had a lot of pain on right side since the surgery and a nonproductive cough, Home Health nurse went to visit pt today and got a low O2 reading of 82%, pt does not use home O2 but has been doing her neb treatments. Transition of care: patient was not received from another setting of care. Onset of symptoms was September 14, 2017. Risk Assessment: Do you want to hurt yourself or someone else? Patient reports no desire to harm self or others. Initial Sepsis Screen: Does the patient meet any 2 criteria? No. Patient's initial sepsis screen is negative. Does the patient have a suspected source of infection? Yes: Productive cough/pneumonia. Care prior to arrival: None. 12:17 Method Of Arrival: Wheelchair iw 12:17 Acuity: FRANKO 2 iw Historical: - Allergies: 12:22 PENICILLINS; iw 12:22 Codeine (nausea ); iw - PMHx: 12:22 Myocardial infarction; CVA; COPD; Hypertension; Cancer, Lung; RA; iw - PSHx: 12:22 Hysterectomy; CABG; Lobectomy; iw - Immunization history:: Adult Immunizations not up to date. - Social history:: Smoking status: Patient uses tobacco products, smokes one-half pack cigarettes per day. - Ebola Screening: : Patient negative for fever greater than or equal to 101.5 degrees Fahrenheit, and additional compatible Ebola Virus Disease symptoms Patient denies exposure to infectious person Patient denies travel to an Ebola-affected area in the 21 days before illness onset No symptoms or risks identified at this time. Screenin:25 Abuse screen: Denies threats or abuse. Nutritional screening: No deficits noted. aa5 Tuberculosis screening: No symptoms or risk factors identified. Fall Risk Secondary diagnosis (15 points) CVA, IV access (20 points). Total Colvin Fall Scale indicates Low Risk Score (25-44 pts). Fall prevention measures have been instituted. Side Rails Up X 2 Placed close to Nursing Station. Assessment: 12:20 General: Appears uncomfortable, Behavior is calm, cooperative. Pain: Complains of pain aa5 in right lateral chest Pain does not radiate. Pain currently is 8 out of 10 on a pain scale. Quality of pain is described as sharp, Pain began 2 weeks ago Is continuous, Aggravated by increased activity, repositioning. Neuro: Level of Consciousness is awake, alert, obeys commands, Oriented to person, place, time, situation. Cardiovascular: Denies chest pain, Heart tones S1 S2 present Rhythm is regular. Respiratory: Reports cough that is non-productive, Airway is patent Respiratory effort is even, unlabored, Respiratory pattern is regular, symmetrical, Breath sounds are clear bilaterally. GI: No signs and/or symptoms were reported involving the gastrointestinal system. : No signs and/or symptoms were reported regarding the genitourinary system. EENT: No signs and/or symptoms were reported regarding the EENT system. Derm: Skin is pink, warm \T\ dry. 13:00 Reassessment: Patient and/or family updated on plan of care and expected duration. Pain aa5 level reassessed. Patient is alert, oriented x 3, equal unlabored respirations, skin warm/dry/pink. 14:00 Reassessment: Patient and/or family updated on plan of care and expected duration. Pain aa5 level reassessed. Patient is alert, oriented x 3, equal unlabored respirations, skin warm/dry/pink. Awaiting CT results. 14:55 Reassessment: Patient and/or family updated on plan of care and expected duration. Pain aa5 level reassessed. Patient is alert, oriented x 3, equal unlabored respirations, skin warm/dry/pink. Pt sitting up in bed eating, pt tolerating well. . 16:00 Reassessment: Patient and/or family updated on plan of care and expected duration. Pain aa5 level reassessed. Patient is alert, oriented x 3, equal unlabored respirations, skin warm/dry/pink. 16:00 Pain: Pain currently is 5 out of 10 on a pain scale. aa5 Vital Signs: 12:19 BP 141 / 53; Pulse 61; Resp 24 S; Pulse Ox 94% on R/A; Pain 8/10; iw 12:20 Temp 97.8(O); aa5 13:00 BP 113 / 58; Pulse 62; Resp 16 S; Pulse Ox 97% on 2 lpm NC; aa5 14:00 BP 109 / 54; Pulse 64; Resp 18 S; Pulse Ox 94% on 2 lpm NC; aa5 15:00 BP 140 / 51; Pulse 67; Resp 16; Pulse Ox 100% on 2 lpm NC; jl7 16:00 BP 122 / 50; Pulse 65; Resp 16 S; Pulse Ox 95% on 2 lpm NC; aa5 ED Course: 12:02 Patient arrived in ED. rg4 12:02 Brandon Mullins MD is Private Physician. rg4 12:11 Marilynn Paz, WESLEY is Primary Nurse. aa5 12:19 Luiz Espinal PA is PHCP. cp 12:19 Eric Mejía MD is Attending Physician. cp 12:19 Triage completed. iw 12:20 Inserted saline lock: 22 gauge in right antecubital area, using aseptic technique. jb4 Blood collected. 12:22 Arm band placed on. iw 12:22 Patient has correct armband on for positive identification. Placed in gown. Bed in low aa5 position. Call light in reach. Side rails up X2. 12:23 PHCP role handed off by Luiz Espinal PA cp 12:23 Linus Hunt PA is PHCP. cp 12:30 Initial lab(s) drawn, by me, sent to lab. First set of blood cultures drawn by me. jb4 12:58 X-ray completed. Portable x-ray completed in exam room. Patient tolerated procedure jb2 well. 12:58 XRAY Chest (1 view) In Process Unspecified. EDMS 13:[address] vr 13:20 Eric Mejía MD is Attending Physician. jr8 13:21 EKG done, by communications technologist. reviewed by Linus RAMSEY. at1 13:21 EKG done, by communications technologist. at1 13:30 CT Chest For PE Angio In Process Unspecified. EDMS 14:34 Brandon Mullins MD is Hospitalizing Provider. jr8 15:59 Assisted to bedside commode. jl7 16:55 No provider procedures requiring assistance completed. aa5 16:55 Patient admitted, IV remains in place. aa5 Administered Medications: 12:30 Drug: Albuterol - atroVENT (3:1) (2.5 mg - 0.5 mg) 3 ml Route: Nebulizer; iw 12:50 Follow up: Response: No adverse reaction aa5 Outcome: 14:35 Decision to Hospitalize by Provider. jr8 17:00 Admitted to Tele accompanied by tech, via stretcher, with oxygen, with chart, Report aa5 called to WESLEY Yañez 17:00 Condition: stable 17:00 Instructed on the need for admit, Demonstrated understanding of instructions. 17:01 Patient left the ED. aa5 Signatures: Dispatcher [employer] EDMS Luis Matos jb2 Agata Aguillon, Marilynn Pulliam RN RN RN aa5 Aimee Caraballo Josh, PA PA jr8 eGraldine conrad, ic design engineer EKG Tat1 Luiz Espinal PA PA cp Garcia, Rubi rg4 Reji Walters, RN RN jb4 Octaviano Dominguez RN RN jl7
[2017-09-21] MEDS ORDERED: FUROSEMIDE 40 MG/4 ML VIAL ONE (16:34)
[2017-09-21] MEDS ORDERED: FUROSEMIDE 20 MG/ 2ML VIAL ONE (16:34)
[2017-09-21] MEDS ORDERED: ALBUTEROL 2.5 MG/3 ML NEB SOL NEB PRN (16:43)
[2017-09-21] MEDS ORDERED: ACETAMINOPHEN 500 MG TAB PO PRN (16:43)
[2017-09-21] MEDS ORDERED: IPRATROPIUM BROM 0.5MG/2.5ML NEB PRN (16:43)
[2017-09-21 16:58] LABS: Urine Blood TRACE (NEG); Urine Glucose NEGATIVE (NEG); Urine Protein NEGATIVE (NEG); Urine pH 5.5 (5.0-7.0)
[2017-09-21] MEDS: METHYLPREDNISOLONE 40 MG INJ IV SCH (17:41)
--- NOTE | 2017-09-21 18:04 | P.HP ---
Certification for Inpatient Patient admitted to: Observation With expected LOS: <2 Midnights Practitioner: I am a practitioner with admitting privileges, knowledge of patient current condition, hospital course, and medical plan of care. Services: Services provided to patient in accordance with Admission requirements found in Title 42 Section 412.3 of the Code of Federal Regulations Patient History Date of Service: 09/21/17 Reason for admission: SHORT OF BREATH History of Present Illness: MS SUTTON JUST HAD R PARTIAL UPPER LOBECTOMY FOR POORLY DIFF. ADENOCA OF LUNG BY DR KHOI JIMENEZ. SHE CAME TO OFFICE AFTER A WEEK TO REMOVE A STITCH YESTERDAY. HE WAS UNCOMFORTABLE WITH PAIN THAT WAS MODERATE BUT WAS NOT HYPOXIC. TODAY I GET A PHONE CALL FROM NURSE THAT HER OXYGEN WAS DOWN TO 82%. I ASKED HER TO GET HER TO ER. SHE HAD CT CHEST ANGIOGRAM THAT IS NEGATIVE FOR PE OR PNEUMONIA. 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 Allergies codeine Allergy (Verified 09/21/17 14:57) Anaphylaxis Penicillins Allergy (Verified 09/21/17 14:57) Anaphylaxis Review of Systems 10-point ROS is otherwise unremarkable General: Weakness, Malaise Respiratory: Shortness of Breath, Pleuritic Pain Physical Examination - Vital Signs Temperature: 97.5 F Blood Pressure: 149/66 Pulse: 63 Respirations: 18 Pulse Ox (%): 96 - Physical Exam General: Alert, Moderate distress (PAIN R SIDE LOWER CHEST MODERATE. AND BECOMES SEVERE WITH ANY MOVEMENT.) HEENT: Atraumatic, PERRLA, Mucous membr. moist/pink, EOMI, Sclerae nonicteric Neck: Supple, 2+ carotid pulse no bruit, No LAD, Without JVD or thyroid abnormality Respiratory: Diminished Cardiovascular: Regular rate/rhythm, Normal S1 S2 Gastrointestinal: Normal bowel sounds, No tenderness Musculoskeletal: No tenderness Integumentary: No rashes Neurological: Normal gait, Normal speech, Normal strength at 5/5 x4 extr, Normal tone, Normal affect Lymphatics: No axilla or inguinal lymphadenopathy - Studies Laboratory Data (last 24 hrs) 09/21/17 12:20: WBC 7.5, Hgb 12.3, Hct 36.3, Plt Count 311 09/21/17 12:20: Sodium 138, Potassium 4.1, BUN 23 H, Creatinine 1.20, Glucose 103 Assessment and Plan - Problems (Diagnosis) (1) COPD exacerbation Current Visit: Yes Status: Chronic Plan: NEBS, STEROIDS SHOULD IMPROVE. NO SIGNS OF INFECTION. (2) Adenocarcinoma of right lung Current Visit: Yes Status: Acute Plan: SP SURGERY SMALL ENOUGH THAT IT MAY NOT NEED RADIATION. FURTHER OPINION BY DR. JIMENEZ - Advance Directives Does patient have a Living Will: No Does patient have a Durable POA for Healthcare: No
[2017-09-21 18:56] VITALS: BMI 24.6
--- NOTE | 2017-09-21 19:10 | EKG ---
Test Date: 2017-09-21 Test Time: 12:56:11 Cook Syrup Maker: KEVIN MEASUREMENT RESULTS: Intervals: Rate: 62 VT: 174 QRSD: 96 QT: 432 QTc: 438 [place]: P: 64 VT: 174 QRS: 45 T: 108 INTERPRETIVE STATEMENTS: Normal sinus rhythm Cannot rule out Inferior infarct, age undetermined ST & T wave abnormality, consider lateral ischemia Abnormal ECG No previous ECG available for comparison Electronically Signed On 09-21-17 19:09:33 CDT by Alcides Choe
[2017-09-21] MEDS: ONDANSETRON 4 MG/2 ML VIAL IV PRN (21:40)
[2017-09-21] MEDS: HYDROMORPHONE HCL 1 MG/ML INJ IV PRN (21:40)
[2017-09-21] MEDS: FAMOTIDINE 20 MG/2 ML VIAL IV SCH (21:40)
[2017-09-22] MEDS: METHYLPREDNISOLONE 40 MG INJ IV SCH ×3 (00:24→16:09)
[2017-09-22 05:03] LABS: Absolute Lymphocytes (CBC) 0.5 K/uL (0.7-4.9); Absolute Neutrophil 5.6 K/uL (1.8-8.0); Basophils % 0.2 % (0-1.3); Lymphocytes % 8.4 % (15.3-44.8); MCH 31.7 pg (27.0-35.0); MCV 91.2 fL (80-100); MPV 7.5 fL (7.6-11.3); Monocytes % 0.5 % (3.3-12.3); RBC Red Blood Cell Count 3.83 M/uL (3.86-4.86)
[2017-09-22 05:34] LABS: Potassium 4.7 mmol/L (3.5-5.1)
[2017-09-22 05:36] LABS: Urine White Blood Cell Casts OK
[2017-09-22 05:37] LABS: Blood Morphology Comment NOT SEEN (NOT SEEN); Platelet Estimate ADEQ
[2017-09-22] MEDS: OXYCODONE *CR* 10 MG TAB PO SCH ×3 (09:00→16:04)
[2017-09-22] MEDS ORDERED: METOPROLOL TARTRATE 12.5 MG PO SCH (09:00)
[2017-09-22] MEDS: HOME MED 1 EA UNK (Gabapentin [Gralise] 300 MG) PO SCH ×2 (09:00→13:48)
[2017-09-22] MEDS ORDERED: VENLAFAXINE HCL XR 37.5MG CAP PO SCH (09:00)
[2017-09-22] MEDS ORDERED: OXYBUTYNIN CHLORIDE 5 MG TAB PO SCH (09:00)
[2017-09-22] MEDS ORDERED: ASPIRIN EC 81 MG TAB PO SCH (09:00)
[2017-09-22] MEDS: FAMOTIDINE 20 MG/2 ML VIAL IV SCH (09:15)
--- NOTE | 2017-09-22 09:39 | P.DS ---
Admission Date: 09/21/17 Discharge Date: 09/22/17 Disposition: ROUTINE DISCHARGE Discharge Condition: FAIR Reason for Admission: SHORT OF BREATH - Problems (1) COPD exacerbation Current Visit: Yes Status: Chronic (2) Adenocarcinoma of right lung Current Visit: Yes Status: Acute Brief History of Present Illness: MS SUTTON JUST HAD R PARTIAL UPPER LOBECTOMY FOR POORLY DIFF. ADENOCA OF LUNG BY DR KHOI JIMENEZ. SHE CAME TO OFFICE AFTER A WEEK TO REMOVE A STITCH YESTERDAY. HE WAS UNCOMFORTABLE WITH PAIN THAT WAS MODERATE BUT WAS NOT HYPOXIC. TODAY I GET A PHONE CALL FROM NURSE THAT HER OXYGEN WAS DOWN TO 82%. I ASKED HER TO GET HER TO ER. SHE HAD CT CHEST ANGIOGRAM THAT IS NEGATIVE FOR PE OR PNEUMONIA. 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 MS SUTTON HAS IMPROVED SIGNIFICANTLY. SHE IS NOT IN MUCH PAIN. HER OXYGEN SAT HAS IMPROVED TO 94% ON 2 LT . SHE IS STABLE FOR DISCHARGE. SHE WILL TAPER MEDROL AT HOME. AND RESUME NEBS. I CALLED DAUGHTER AND EXPLAINED THE FINDINGS AND PLAN. Vital Signs/Physical Exam: Temp Pulse Resp BP Pulse Ox 97.0 F 79 18 158/70 H 91 09/22/17 08:00 09/22/17 08:00 09/22/17 08:00 09/22/17 08:00 09/22/17 08:00 Laboratory Data at Discharge: WBC 6.1 K/uL (4.3-10.9) D 09/22/17 04:23 Hgb 12.1 g/dL (12.0-15.0) 09/22/17 04:23 Hct 35.0 % (36.0-45.0) L 09/22/17 04:23 Plt Count 300 K/uL (152-406) 09/22/17 04:23 Sodium 138 mmol/L (136-145) 09/22/17 04:23 Potassium 4.7 mmol/L (3.5-5.1) 09/22/17 04:23 BUN 22 mg/dL (7-18) H 09/22/17 04:23 Creatinine 1.30 mg/dL (0.55-1.3) 09/22/17 04:23 Glucose 184 mg/dL (74-106) H 09/22/17 04:23 Troponin I Cancelled 09/21/17 16:43 Home Medications: Atorvastatin Calcium 10 mg PO BEDTIME 09/21/17 Metoprolol Tartrate 12.5 mg PO BID 09/21/17 Oxybutynin Chloride 5 mg PO BID 09/21/17 Oxycodone HCl [Oxycodone HCl ER] 10 mg PO QID 09/21/17 Venlafaxine HCl [Effexor XR] 37.5 mg PO DAILY 09/21/17 Albuterol Neb [Proventil 0.083% Neb Soln] 2.5 mg NEB Q4H PRN amp 09/22/17 Gabapentin [Gralise] 300 mg PO TID 09/22/17 Methylprednisolone [Medrol dosepack] 4 mg PO DIRECTED #1 jeny 09/22/17 New Medications: Methylprednisolone [Medrol dosepack] 4 mg PO DIRECTED #1 jeny Diet: Regular Activity: Ad gin
[2017-09-22 10:51] VITALS: O2SAT 93
[2017-09-22] MEDS: HYDROMORPHONE HCL 1 MG/ML INJ IV PRN (16:09)
[2017-09-22] MEDS: ONDANSETRON 4 MG/2 ML VIAL IV PRN (16:19)
[2017-09-22] MEDS ORDERED: ENOXAPARIN 40 MG/0.4 ML SQ SCH (17:00)
[2017-09-22 18:03] VITALS: BP 146/68; TEMP 98.8
[2017-09-22] MEDS ORDERED: ATORVASTATIN 10 MG TAB PO SCH (21:00)
== END 2017-09-22 18:06 | disposition home or self-care (01) ==
LOC: ER 12:00 → ERHOLD 15:08 → 2ND 16:38
PROVIDERS: ADMIT Internal Medicine; ATTEND Internal Medicine
DX: J44.1 Chronic obstructive pulmonary disease with (acute) exacerbation (principal); C34.11 Malignant neoplasm of upper lobe, right bronchus or lung; I10 Essential (primary) hypertension; F17.210 Nicotine dependence, cigarettes, uncomplicated; I25.2 Old myocardial infarction; R09.02 Hypoxemia; Z99.81 Dependence on supplemental oxygen; Z88.5 Allergy status to narcotic agent; Z88.0 Allergy status to penicillin; Z90.2 Acquired absence of lung [part of]; Z95.1 Presence of aortocoronary bypass graft
CPT/HCPCS: 36415; 71045; 71275; 80048 ×2; 81003; 83880 ×2; 85025 ×2; 87040 ×2; 93005; 94640; 94760; 99285; G0378 ×2; J1170 ×2; J1650; J1940; J2405 ×2; J2920 ×4; Q9967; 84439; 84443

== ENCOUNTER 2017-10-04 11:27 | Observation (INO) | payer OTHER, SELFPAY ==
--- OUTSIDE RECORDS SUMMARY | 2017-10-04 11:32 | XMS REPORT | Clinical Summary ---
:1950 Author Organization [facility] Address [address] [place] [address] Care Team Providers Name Role Phone Brandon [...] LYMPH NODE DISSECTION, LYSIS OF ADHESION 09/05/2017 [facility] Gastroenterology Vilma Holden Non-intractable Encounter MD Rachel vomiting with nausea, unspecified vomiting type (Primary Dx) 09/05/2017 Anesthesia Event Gastroenterology Jethro Crenshaw MD 09/05/2017 Procedure Pass Gastroenterology 09/05/2017 Surgery Gastroenterology Vilma Holden MD 09/03/2017 Telephone Cardiothoracic Surgery Gabrielle Lyman, ETIQUETTE COACH 08/30/2017 [facility] Cardiothoracic Surgery Mustapha David Encounter MD Jethro [...] DISSECTION 08/29/2017 Telephone Cardiothoracic Surgery Gabrielle Lyman, ETIQUETTE COACH 08/27/2017 Telephone General Surgery Mustapha David MD 08/21/2017 Lab Lab Mustapha David Malignant neoplasm of upper lobe of right lung; MD Jethro LAD (lymphadenopathy), axillary; Nonintractable headache, unspecified chronicity pattern, unspecified headache type; Pre-op testing 08/21/2017 Office Visit General Surgery June Angel MD (Primary Dx) 08/21/2017 Orders Only Cardiothoracic Surgery Lucia Modi MD 08/17/2017 Hospital Radiology Mustapha aDvid Lung nodule Encounter MD Jethro 08/17/2017 Office [...] Tanner MA 07/18/2017 Transcribe Orders Cardiothoracic Surgery Joann Mustapha Lung nodule ( Primary MD Jethro Dx) 07/18/2017 Telephone Cardiothoracic Surgery Gabrielle Lyman, LUIS ALBERTO 07/18/2017 Telephone Cardiothoracic Surgery Gabrielle Lyman, LUIS ALBERTO 07/17/2017 Hospital Radiology Mustapha David MD 07/17/2017 Office Visit Cardiothoracic Surgery Joann Mustapha Lung nodule ( Primary MD Jethro Dx) 07/17/2017 Ancillary Orders Radiology Mustapha David MD 07/13/2017 Orders Only Cardiothoracic Surgery Lucia Modi MD after 10/03/2016 Family History Medical History Relation Name Comments [...] Office Visit Cardiothoracic Surgery Mustapha David MD [address] [facility] [address] [place] [address] Gabrielle Lyman, ETIQUETTE COACH [address] [facility] [address] [place] [address] Health Maintenance Due Date Last Done Comments BREAST CANCER SCREENING 1998 COLON CANCER SCREENING 1998 SHINGRIX VACCINE (#1) 1998 ZOSTER VACCINE 2008 PNEUMOCOCCAL POLYSACCHARIDE VACCINE AGE 65 AND OVER 2013 PNEUMOCOCCAL-13 2013 INFLUENZA VACCINE 09/19/2017 Implants Implanted Type Area Rental Car Ferry Driver Device Expiration Model / Identifier Date Serial / Lot Kit Selnt Fibrin Humn Hmsts Surgy 5ml Evicel - [id number] Surgical N/A: N/A ETHICON - 03/21/2019 [id number] / Implanted: 09/07/2017 (Quantity not on file) Implants; / Expanders; [id number] Extenders; Surgical Wires Procedures Procedure Name Priority [...] this procedure are in the results section. MISCELLANEOUS REFERRAL TEST Routine 09/07/2017 Results for 3:00 PM CDT this procedure are in the [...] this procedure are in the results section. [place] AN ELECTIVE ENDOTRACHEAL Routine 09/07/2017 Results for [...] VW Routine 06/04/2017 12:00 AM CDT after 10/03/2016 Results XR Chest 1 Vw Portable (09/09/2017 6:33 AM)Only the most recent of4 resultswithin the time period is included. Narrative Performed At EXAMINATION: XR CHEST 1 [facility]ABLE [facility] INDICATION: chest tube COMPARISON: Most recent [...] the right lower chest and abdominal wall. [facility]-[id number] Procedure Note Interface, Radiology Results Incoming - 09/09/2017 7:43 AM [...] the right lower chest and abdominal wall. [facility]-[id number] Performing Organization Address City/State/Zipcode Phone Number [facility] [address] [place] [address] Estimated GFR (09/09/2017 6:05 AM)Only the most recent of4 resultswithin the time period is included. GFR Non Af Amer 45 (A) mL/min/1.73 m2 [facility] DEPARTMENT OF PATHOLOGY AND GENOMIC MEDICINE GFR Af Amer 54 (A) mL/min/1.73 m2 [facility] DEPARTMENT OF Comment: PATHOLOGY AND GENOMIC Chronic [...] Americans. Specimen Plasma specimen Performing Organization Address City/[facility] Phone Number [facility] DEPARTMENT OF PATHOLOGY AND [address] [place] [address] [facility] CBC hemogram (09/09/2017 6:05 AM)Only the most recent of3 resultswithin the time period is included. WBC 6.21 4.50 - 11.00 k/uL [facility] DEPARTMENT OF PATHOLOGY AND GENOMIC MEDICINE RBC 3.70 (L) 4.20 - 5.50 m/uL [facility] DEPARTMENT OF PATHOLOGY AND GENOMIC MEDICINE HGB 11.1 (L) 12.0 - 16.0 g/dL [facility] DEPARTMENT OF PATHOLOGY AND GENOMIC MEDICINE HCT 34.8 (L) 37.0 - 47.0 % [facility] DEPARTMENT OF PATHOLOGY AND GENOMIC MEDICINE MCV 94.1 82.0 - 100.0 fL [facility] DEPARTMENT OF PATHOLOGY AND GENOMIC MEDICINE MCH 30.0 27.0 - 34.0 pg [facility] DEPARTMENT OF PATHOLOGY AND GENOMIC MEDICINE MCHC 31.9 31.0 - 37.0 g/dL [facility] DEPARTMENT OF PATHOLOGY AND GENOMIC MEDICINE RDW - SD 48.5 37.0 - 55.0 fL [facility] DEPARTMENT OF PATHOLOGY AND GENOMIC MEDICINE MPV 10.4 8.8 - 13.2 fL [facility] DEPARTMENT OF PATHOLOGY AND GENOMIC MEDICINE Platelet count 191 150 - 400 k/uL [facility] DEPARTMENT OF PATHOLOGY AND GENOMIC MEDICINE Nucleated RBC 0.00 /100 WBC [facility] DEPARTMENT OF PATHOLOGY AND GENOMIC MEDICINE Specimen Blood Performing Organization Address [facility] Phone Number [facility] DEPARTMENT OF PATHOLOGY AND [address] [place], [place] [id number] [facility] Magnesium level (09/09/2017 6:05 AM)Only the most recent of3 resultswithin the time period is included. Magnesium 2.1 1.6 - 2.4 mg/dL [facility] DEPARTMENT OF PATHOLOGY AND GENOMIC MEDICINE Specimen Plasma specimen Performing Organization Address [facility]/Zipcode Phone Number [facility] DEPARTMENT OF PATHOLOGY AND [address] [place] [address] GENOMIC MEDICINE Basic metabolic panel (09/09/2017 6:05 AM)Only the most recent of3 resultswithin the time period is included. Sodium 137 135 - 148 mEq/L [facility] DEPARTMENT OF PATHOLOGY AND GENOMIC MEDICINE Potassium 4.5 3.5 - 5.0 mEq/L [facility] DEPARTMENT OF PATHOLOGY AND GENOMIC MEDICINE Chloride 101 98 - 112 mEq/L [facility] DEPARTMENT OF PATHOLOGY AND GENOMIC MEDICINE CO2 25 24 - 31 mEq/L [facility] DEPARTMENT OF PATHOLOGY AND GENOMIC MEDICINE Anion gap 11@ANIO 7 - 15 mEq/L [facility] DEPARTMENT OF PATHOLOGY AND GENOMIC MEDICINE BUN 26 (H) 8 - 23 mg/dL [facility] DEPARTMENT OF PATHOLOGY AND GENOMIC MEDICINE Creatinine 1.2 (H) 0.5 - 0.9 mg/dL [facility] DEPARTMENT OF PATHOLOGY AND GENOMIC MEDICINE Glucose 89 65 - 99 mg/dL [facility] DEPARTMENT OF PATHOLOGY AND GENOMIC MEDICINE Calcium 8.9 8.8 - 10.2 mg/dL [facility] DEPARTMENT OF PATHOLOGY AND GENOMIC MEDICINE Specimen Plasma specimen Performing Organization Address [facility] Phone Number [facility] DEPARTMENT OF PATHOLOGY AND [address] [place] [address] MEDICINE POC glucose (09/08/2017 5:17 PM)Only the most recent of4 resultswithin the time period is included. POC glucose 118 (H) 65 - 99 mg/dL [facility] DEPARTMENT OF PATHOLOGY AND Comment: GENOMIC MEDICINE [facility] Notified RN Meter ID: [id number] Actuarial Internship: Maycol Dennis Performing Organization Address City/[facility] Phone Number [facility] DEPARTMENT OF PATHOLOGY AND [address] [place] [address] Phosphorus level (09/08/2017 3:05 AM)Only the most recent of2 resultswithin the time period is included. Phosphorus 3.5 2.4 - 4.5 mg/dL [facility] DEPARTMENT OF PATHOLOGY AND GENOMIC MEDICINE Specimen Plasma specimen Performing Organization Address City/[facility] Phone Number [facility] DEPARTMENT OF PATHOLOGY AND [address] [place] [address] Ionized calcium (09/08/2017 3:05 AM)Only the most recent of2 resultswithin the time period is included. pH 7.38 [facility] DEPARTMENT OF PATHOLOGY AND GENOMIC MEDICINE Ionized calcium 1.24 1.11 - 1.32 mmol/L [facility] DEPARTMENT OF PATHOLOGY AND GENOMIC MEDICINE Specimen Plasma specimen Performing Organization Address [facility] Facility[facility] Phone Number [facility] DEPARTMENT OF PATHOLOGY AND [address] [place] [address] Partial thromboplastin time, activated (09/08/2017 2:21 AM)Only the most recent of4 resultswithin the time period is included. PTT 32.0 23.0 - 36.0 sec [facility] DEPARTMENT OF PATHOLOGY Comment: AND [facility] PTT therapeutic range for unfractionated heparin is 61.0-112.0 seconds which corresponds to Anti-Xa 0.3-0.7 U/ml. Specimen Blood Performing Organization Address [facility] Phone Number [facility] DEPARTMENT OF PATHOLOGY AND [address] [place] [address] Prothrombin time with INR (09/08/2017 2:21 AM)Only the most recent of4 resultswithin the time period is included. Prothrombin time 13.6 12.0 - 15.0 sec [facility] DEPARTMENT OF PATHOLOGY AND GENOMIC MEDICINE INR 1.0 [facility] DEPARTMENT OF Comment: PATHOLOGY AND GENOMIC The International Normalized Ratio (INR) is a therapeutic MEDICINE monitoring tool for patients who are stable on oral anticoagulant therapy. An INR of 2.0-3.0 is suggested for deep vein thrombosis/pulmonary embolism. Specimen Blood Performing Organization Address [facility] Phone Number [facility] DEPARTMENT OF PATHOLOGY AND [address] [place], [place] [phone] [facility] Fibrinogen (09/07/2017 9:45 PM) Fibrinogen 470 (H) 200 - 450 mg/dL [facility] DEPARTMENT OF PATHOLOGY AND GENOMIC MEDICINE Specimen Blood Performing Organization Address [facility] Phone Number [facility] DEPARTMENT OF PATHOLOGY AND [address] [place] [address] GENOMIC MEDICINE Type and screen (09/07/2017 9:45 PM)Only the most recent of2 resultswithin the time period is included. ABO grouping A [facility] DEPARTMENT OF PATHOLOGY AND GENOMIC MEDICINE Rh type NEG [facility] DEPARTMENT OF PATHOLOGY AND GENOMIC MEDICINE Antibody screen (gel) NEG [facility] DEPARTMENT OF PATHOLOGY AND GENOMIC MEDICINE Specimen Blood Performing Organization Address [facility]/Zipcode Phone Number [facility] DEPARTMENT OF PATHOLOGY AND [address] [place] [address] GENOMIC [facility] Sodium level, syringe (09/07/2017 3:40 PM)Only the most recent of3 resultswithin the time period is included. Sodium, syringe 136 135 - 148 mEq/L [facility] DEPARTMENT OF PATHOLOGY AND GENOMIC MEDICINE Specimen Blood Performing Organization Address [facility] Phone Number [facility] DEPARTMENT OF PATHOLOGY AND [address] [place] [address] Potassium, syringe (09/07/2017 3:40 PM)Only the most recent of3 resultswithin the time period is included. Potassium, syringe 4.6 3.5 - 5.0 mEq/L [facility] DEPARTMENT OF PATHOLOGY AND GENOMIC MEDICINE Specimen Blood Performing Organization Address [facility] Phone Number [facility] DEPARTMENT OF PATHOLOGY AND [address] [place] [address] Ionized calcium, arterial (09/07/2017 3:40 PM)Only the most recent of3 resultswithin the time period is included. Ionized calcium, arterial 1.20 1.11 - 1.32 mmol/L [facility] DEPARTMENT OF PATHOLOGY AND GENOMIC MEDICINE Specimen Blood Performing Organization Address [facility] Phone Number [facility] DEPARTMENT OF PATHOLOGY AND [address] [place] [address] Hemoglobin, syringe (09/07/2017 3:40 PM)Only the most recent of3 resultswithin the time period is included. Hemoglobin, syringe 12.5 12.0 - 16.0 g/dL [facility] DEPARTMENT OF PATHOLOGY AND GENOMIC MEDICINE Specimen Blood Performing Organization Address [facility] Phone Number [facility] DEPARTMENT OF PATHOLOGY AND [address] [place] [address] GENOMIC [facility] Glucose level, syringe (09/07/2017 3:40 PM)Only the most recent of3 resultswithin the time period is included. Glucose, syringe 114 (H) 65 - 99 mg/dL [facility] DEPARTMENT OF PATHOLOGY AND GENOMIC MEDICINE Specimen Blood Performing Organization Address [facility] Phone Number [facility] DEPARTMENT OF PATHOLOGY AND [address] [place] [address] Arterial blood gas, corrected (09/07/2017 3:40 PM)Only the most recent of3 resultswithin the time period is included. pH, arterial 7.35 7.35 - 7.45 [facility] DEPARTMENT OF PATHOLOGY AND GENOMIC MEDICINE pCO2, arterial 43 35 - 45 mmHg [facility] DEPARTMENT OF PATHOLOGY AND GENOMIC MEDICINE pO2, arterial 148 (H) 80 - 90 mmHg [facility] DEPARTMENT OF PATHOLOGY AND GENOMIC MEDICINE Temperature, Celsius 37.0 Degrees C [facility] DEPARTMENT OF PATHOLOGY AND GENOMIC MEDICINE O2 saturation, arterial 99 95 - 100 % [facility] DEPARTMENT OF PATHOLOGY AND GENOMIC MEDICINE pH, arterial corrected 7.35 [facility] DEPARTMENT OF PATHOLOGY AND GENOMIC MEDICINE pCO2, arterial corrected 43 mmHg [facility] DEPARTMENT OF PATHOLOGY AND GENOMIC MEDICINE pO2, arterial corrected 148 mmHg [facility] DEPARTMENT OF PATHOLOGY AND GENOMIC MEDICINE Base excess, arterial -2 -2 - 2 mEq/L [facility] DEPARTMENT OF PATHOLOGY AND GENOMIC MEDICINE Specimen Blood Performing Organization Address City/State/Zipcode Phone Number [facility] DEPARTMENT OF PATHOLOGY AND [address] [place] [address] [facility] Miscellaneous referral test (09/07/2017 3:00 PM) [facility] test name [employer] MET [facility] test result SEE NOTE [facility] Comment: MET FISH Sample type: Paraffin, lung Case# [id number] RESULTS: NEGATIVE Interpretation: MET(7q31) signals per nucleus: 2.1 CEN7 signals per nucleus: 2.3 MET-CEN7 signal ratio: 0.9 An H&E stained slide was reviewed by a pathologist to identify traget areas containing invasive tumor. FISH analysis was performed within the marked target areas using a dual-probe FISH assay to detect MET overexpression. Results show no evidence of MET amplification with a MET/CEN7 ratio of <2.0. This is a NEGATIVE result. This MET FISH assay was scored manually by a certified dairy technologist. Two or more independent areas containing invasive tumor were analyzed and the technical results underwent further review for director of quality purposes. Reference range: Positive: MET(7q31) to CEN7 signal ration is >/=2.0 or when 10% of tumor cells contain clusters of >15 copies per cell of MET (7q31) signals. Negative: MET(7q31) to CEN7 signal ratio is <2.0 Equivocal: MET copy number >/=5.0 and MET/CEN7 ratio <2.0 Probe set details: MET: nuc kiya(CEN7x2.3,METx2.1)[50] Nuclei scored: 50 Test(s) performed by: [employer] 5 MATT Gallo Narrative Performed At [facility] [id number] Performing Organization Address City/State/Zipcode Phone Number [facility] [address] [place] [address] Surgical pathology request (09/07/2017 2:39 PM)Only the most recent of8 resultswithin the time period is included. [facility] DEPARTMENT OF PATHOLOGY AND GENOMIC MEDICINE Surgical pathology See link below for PDF Lab [facility] DEPARTMENT OF report Report PATHOLOGY AND GENOMIC MEDICINE Result status This is Supplemental Report [facility] DEPARTMENT OF to [id number] PATHOLOGY AND GENOMIC MEDICINE Narrative Performed At [facility] DEPARTMENT OF PATHOLOGY AND GENOMIC MEDICINE [id number] Performing Organization Address City/[facility]/Zipcode Phone Number [facility] DEPARTMENT OF PATHOLOGY AND [address] [place] [address] [facility] Arterial line (09/07/2017 1:11 PM) Narrative Performed At [facility] MD 09/07/20171:11 PM Arterial line Performed by: BAUTISTA ST Authorized by: KELLE MCKEON Patient Location:OR Staff: Anesthesiologist:KELLE MCKEON Resident/MEAT GRINDER/AA:BAUTISTA ST MSBT: antiseptic used and cap/gown used [...] Location:OR Urgency:Elective Difficult Airway: No Anesthesiologist:KELLE MCKEON Resident/MEAT GRINDER/AA:BAUTISTA ST Preoxygenated with 100% O2: Yes Mask [...] included. WBC 5.33 4.50 - 11.00 k/uL [facility] DEPARTMENT OF PATHOLOGY AND GENOMIC MEDICINE RBC 4.12 (L) 4.20 - 5.50 m/uL [facility] DEPARTMENT OF PATHOLOGY AND GENOMIC MEDICINE HGB 12.3 12.0 - 16.0 g/dL [facility] DEPARTMENT OF PATHOLOGY AND GENOMIC MEDICINE HCT 38.4 37.0 - 47.0 % [facility] DEPARTMENT OF PATHOLOGY AND GENOMIC MEDICINE MCV 93.2 82.0 - 100.0 fL [facility] DEPARTMENT OF PATHOLOGY AND GENOMIC MEDICINE MCH 29.9 27.0 - 34.0 pg [facility] DEPARTMENT OF PATHOLOGY AND GENOMIC MEDICINE MCHC 32.0 31.0 - 37.0 g/dL [facility] DEPARTMENT OF PATHOLOGY AND GENOMIC MEDICINE RDW - SD 45.2 37.0 - 55.0 fL [facility] DEPARTMENT OF PATHOLOGY AND GENOMIC MEDICINE MPV 10.3 8.8 - 13.2 fL [facility] DEPARTMENT OF PATHOLOGY AND GENOMIC MEDICINE Platelet count 183 150 - 400 k/uL [facility] DEPARTMENT OF PATHOLOGY AND GENOMIC MEDICINE Nucleated RBC 0.00 /100 WBC [facility] DEPARTMENT OF PATHOLOGY AND GENOMIC MEDICINE Neutrophils 57.5 39.0 - 69.0 % [facility] DEPARTMENT OF PATHOLOGY AND GENOMIC MEDICINE Lymphocytes 31.3 25.0 - 45.0 % [facility] DEPARTMENT OF PATHOLOGY AND GENOMIC MEDICINE Monocytes 6.8 0.0 - 10.0 % [facility] DEPARTMENT OF PATHOLOGY AND GENOMIC MEDICINE Eosinophils 3.4 0.0 - 5.0 % [facility] DEPARTMENT OF PATHOLOGY AND GENOMIC MEDICINE Basophils 0.8 0.0 - 1.0 % [facility] DEPARTMENT OF PATHOLOGY AND GENOMIC MEDICINE Immature granulocytes 0.2Comment: 0.0 - 1.0 % [facility] DEPARTMENT OF "Immature PATHOLOGY AND GENOMIC granulocytes" MEDICINE (promyelocytes, myelocytes, metamyelocytes) Specimen Blood Performing Organization Address City/State/Zipcode Phone Number [facility] DEPARTMENT OF PATHOLOGY AND [address] [place] [address] [facility] Prepare RBC (08/21/2017 2:50 PM) Product name Apheresis Red Cell AS3 #1 LR [facility] DEPARTMENT OF PATHOLOGY AND GENOMIC MEDICINE Unit number [id number] [facility] DEPARTMENT OF PATHOLOGY AND GENOMIC MEDICINE Product code [id number] [facility] DEPARTMENT OF PATHOLOGY AND GENOMIC MEDICINE Dispense status Returned to not [facility] DEPARTMENT OF transfused PATHOLOGY AND GENOMIC MEDICINE Blood expiration date [facility] DEPARTMENT OF PATHOLOGY AND GENOMIC MEDICINE Blood type code 0600 [facility] DEPARTMENT OF PATHOLOGY AND GENOMIC MEDICINE Blood type A NEGATIVE [facility] DEPARTMENT OF PATHOLOGY AND GENOMIC MEDICINE Product name Red Blood Cells -1, [facility] DEPARTMENT OF Leukored PATHOLOGY AND GENOMIC MEDICINE Unit number [id number] [facility] DEPARTMENT OF PATHOLOGY AND GENOMIC MEDICINE Product code [id number] [facility] DEPARTMENT OF PATHOLOGY AND GENOMIC MEDICINE Dispense status Returned to BB not [facility] DEPARTMENT OF transfused PATHOLOGY AND GENOMIC MEDICINE Blood expiration date [facility] DEPARTMENT OF PATHOLOGY AND GENOMIC MEDICINE Blood type code 0600 [facility] DEPARTMENT OF PATHOLOGY AND GENOMIC MEDICINE Blood type A NEGATIVE [facility] DEPARTMENT OF PATHOLOGY AND GENOMIC MEDICINE Performing Organization Address City/State/[facility] Phone Number [facility] DEPARTMENT OF PATHOLOGY [address] [address] GENOMIC MEDICINE Comprehensive metabolic panel (08/21/2017 2:50 PM) Sodium 140 135 - 148 mEq/L [facility] DEPARTMENT OF PATHOLOGY AND GENOMIC MEDICINE Potassium 3.6 3.5 - 5.0 mEq/L [facility] DEPARTMENT OF PATHOLOGY AND GENOMIC MEDICINE Chloride 101 98 - 112 mEq/L [facility] DEPARTMENT OF PATHOLOGY AND GENOMIC MEDICINE CO2 29 24 - 31 mEq/L [facility] DEPARTMENT OF PATHOLOGY AND GENOMIC MEDICINE Anion gap 10@ANIO 7 - 15 mEq/L [facility] DEPARTMENT OF PATHOLOGY AND GENOMIC MEDICINE BUN 14 8 - 23 mg/dL [facility] DEPARTMENT OF PATHOLOGY AND GENOMIC MEDICINE Creatinine 0.9 0.5 - 0.9 mg/dL [facility] DEPARTMENT OF PATHOLOGY AND GENOMIC MEDICINE Glucose 75 65 - 99 mg/dL [facility] DEPARTMENT OF PATHOLOGY AND GENOMIC MEDICINE Calcium 9.2 8.8 - 10.2 mg/dL [facility] DEPARTMENT OF PATHOLOGY AND GENOMIC MEDICINE Protein 7.1 6.3 - 8.3 g/dL [facility] DEPARTMENT OF Comment: PATHOLOGY AND GENOMIC [place] 4.6-7.0 g/dL MEDICINE 1 week 4.4-7.6 g/dL 7 months-1year5.1-7.3 g/dL 1-2 years5.6-7.5 g/dL >3 years6.0-8.0 g/dL 18-150 6.3-8.3 g/dL Albumin 3.0 (L) 3.5 - 5.0 g/dL [facility] DEPARTMENT OF PATHOLOGY AND GENOMIC MEDICINE A/G ratio 0.7 0.7 - 3.8 [facility] DEPARTMENT OF PATHOLOGY AND GENOMIC MEDICINE Alkaline phosphatase 78 35 - 104 U/L [facility] DEPARTMENT OF PATHOLOGY AND GENOMIC MEDICINE AST 16 10 - 35 U/L [facility] DEPARTMENT OF PATHOLOGY AND GENOMIC MEDICINE ALT 8 5 - 50 U/L [facility] DEPARTMENT OF PATHOLOGY AND GENOMIC MEDICINE Total bilirubin 0.3 0.0 - 1.2 mg/dL [facility] DEPARTMENT OF PATHOLOGY AND GENOMIC MEDICINE Specimen Plasma specimen Performing Organization Address City/[facility] Phone Number [facility] DEPARTMENT OF PATHOLOGY AND [address] [place] [phone] GENOMIC MEDICINE Flow cytometry evaluation (08/17/2017 12:54 PM) [facility] DEPARTMENT OF PATHOLOGY AND GENOMIC MEDICINE Flow cytometry evaluation See link below for PDF [facility] DEPARTMENT OF Lab Report PATHOLOGY AND GENOMIC MEDICINE Performing Organization Address City/[facility] Phone Number [facility] DEPARTMENT OF PATHOLOGY AND [address] [place] [address] GENOMIC MEDICINE Cytology (non-gynecological) request (08/17/2017 12:54 PM)Only the most recent of2 resultswithin the time period is included. [facility] DEPARTMENT OF PATHOLOGY AND GENOMIC MEDICINE Cytology See link below for PDF [facility] [facility] DEPARTMENT OF (non-gynecological) report Lab Report PATHOLOGY AND GENOMIC MEDICINE Result status This is Final Report to [facility] DEPARTMENT OF [id number] PATHOLOGY AND GENOMIC MEDICINE Performing Organization Address City/[facility] Phone Number [facility] DEPARTMENT PATHOLOGY AND [address] [place], [place] [id number] GENOMIC MEDICINE US Needle Biopsy (08/17/2017 12:02 [...] IMPRESSION: Ultrasound-guided right axillary lymph node biopsy. [facility]-[id number] Procedure Note [facility], Radiology Results Incoming - 08/17/2017 12:21 PM [...] IMPRESSION: Ultrasound-guided right axillary lymph node biopsy. [facility]-[id number] Performing Organization Address City/State/Zipcode Phone Number [facility] [address] [place] [address] Mammo External Study (08/16/2017) Narrative Performed At [...] thoracic aorta. Minimal degenerative changes thoracic spine. [facility]-[id number] Procedure Note Interface, Radiology Results Incoming - [...] thoracic aorta. Minimal degenerative changes thoracic spine. [facility]-[id number] Performing Organization Address City/State/Zipcode Phone Number [facility] [address] [place] [address] CT Needle Biopsy No Contrast (08/13/2017 10:14 AM) Narrative Performed At EXAMINATION:CT NEEDLE BIOPSY NO CONTRAST [facility] CLINICAL HISTORY:R59.0 Localized enlarged lymph nodes, right axillary lymphandenopathy COMPARISON:None. FINDINGS: IV conscious sedation was utilized, with Versed and fentanyl, with continual monitoring throughout the procedure by registered nurse. Laao-oy-etkg patient to physician sedation time was 18 minutes. Following sterile skin preparation and local anesthesia and utilizing CT fluoroscopic guidance, multiple core tissue samples were obtained and sent to pathology for further evaluation. An adequacy check was performed. The patient tolerated the procedure well. IMPRESSION: Successful biopsy of a mass in the right upper lobe. [facility]-[id number] Procedure Note Interface, Radiology Results Incoming - 08/13/2017 1:35 PM CDT EXAMINATION: CT NEEDLE BIOPSY NO CONTRAST CLINICAL HISTORY: R59.0 Localized enlarged lymph nodes, right axillary lymphandenopathy COMPARISON: None. FINDINGS: IV conscious sedation was utilized, with Versed and fentanyl, with continual monitoring throughout the procedure by registered nurse. Bwzo-ii-vzau patient to physician sedation time was 18 minutes. Following sterile skin preparation and local anesthesia and utilizing CT fluoroscopic guidance, multiple core tissue samples were obtained and sent to pathology for further evaluation. An adequacy check was performed. The patient tolerated the procedure well. IMPRESSION: Successful biopsy of a mass in the right upper lobe. [facility]-[id number] Performing Organization Address City/[facility]/Zipcode Phone Number [facility] [address] [place] [address] PET/CT Whole Body External Study (07/26/2017 9:50 AM) Narrative Performed At This exam was not acquired at a [facility] facility and has not been [facility] interpreted by a [facility] Provider.The exam was imported into our imaging system for comparisons purposes. Performing Organization Address City/[facility] Phone Number [employer] [facility] [address] [place] [address] PET/CT Skull Base Mid Thigh External Study (07/26/2017) Narrative Performed At Pulmonary function tests, complete (07/26/2017) Narrative Performed At Pulmonary function tests, complete (07/26/2017) Narrative Performed At CT Chest External Study (06/07/2017 2:10 PM)Only the most recent of2 resultswithin the time period is included. Narrative Performed At This exam was not acquired at a [facility] facility and has not been [facility] interpreted by a Nondenominational Provider.The exam was imported into our imaging system for comparisons purposes. Performing Organization Address City/[facility]/Zipcode Phone Number [facility] [address] [place] [address] XR Chest 2 Vw (06/04/2017) Narrative Performed At after 10/03/2016 Insurance Payer Benefit Plan / Group Subscriber ID Type Phone Address MEDICARE MEDICARE PART A AND B xxxxxxxxxx Medicare [place], [place] Home: [address] [facility] [phone] [address]
[2017-10-04] MEDS ORDERED: ALBUTEROL 2.5 MG/3 ML NEB SOL IH PRN (12:27)
[2017-10-04 12:47] LABS: Absolute Lymphocytes (CBC) 1.1 K/uL (0.7-4.9); Absolute Monocytes 0.6 K/uL (0.1-1.3); Absolute Neutrophil 6.5 K/uL (1.8-8.0); Basophils % 0.6 % (0-1.3); Eosinophils % 1.5 % (0-4.4); Hematocrit 42.3 % (36.0-45.0); Lymphocytes % 13.6 % (15.3-44.8); MCH 30.7 pg (27.0-35.0); MCV 91.8 fL (80-100); MPV 8.8 fL (7.6-11.3); Monocytes % 6.8 % (3.3-12.3); RBC Red Blood Cell Count 4.61 M/uL (3.86-4.86)
[2017-10-04 12:50] VITALS: BMI 23.6
[2017-10-04 12:50] LABS: Protime INR 1.02
[2017-10-04] MEDS ORDERED: NACHLORIDE 0.45% 1,000 ML IV SCH (13:00)
[2017-10-04] MEDS ORDERED: ONDANSETRON 4 MG (ODT) TAB PO PRN (13:00)
[2017-10-04] MEDS ORDERED: ACETAMINOPHEN 325 MG TABLET PO PRN (13:00)
[2017-10-04] MEDS ORDERED: LOPERAMIDE HCL 2 MG CAPSULE PO PRN (13:00)
[2017-10-04] MEDS ORDERED: DIPHENHYDRAMINE 25 MG TAB/CAP PO PRN (13:00)
[2017-10-04] MEDS ORDERED: POLYETHYL GLY 3350 17 GM/DOSE PO PRN (13:00)
[2017-10-04] MEDS ORDERED: ONDANSETRON 4 MG/2 ML VIAL IV PRN (13:00)
[2017-10-04] MEDS ORDERED: HYDROMORPHONE HCL 1 MG/ML INJ IV PRN (13:02)
--- NOTE | 2017-10-04 13:04 | RAD REPORT ---
EXAM DESCRIPTION: RAD - Chest Pa And Lat (2 Views) - 10/04/2017 12:55 pm CLINICAL HISTORY: Abdominal pain, vomiting COMPARISON: CT chest September 21, 2017, portable chest September 21, 2017 TECHNIQUE: PA and lateral views of the chest were obtained. FINDINGS: The lungs are fibrotic as a baseline. There are postsurgical changes in the medial right u pper lung field from partial lobectomy. September 21 study showed a right apical hydropneumothorax. This is still present but has reduced in size since the September 21 study. No new or enlarging pleural fluid collection in the mid and lower lung field. No acute left-sided finding. Multiple right-sided rib fra ctures are noted. Heart size is normal and central vasculature is within normal limits. No acute b alli finding noted. No acute aortic finding. Sternotomy wires are in place. There is no free air unde r the diaphragm. IMPRESSION: Right apical hydropneumothorax is present but has reduced in size significantly from Sep ust 3 imaging. No new or progressive cardiopulmonary finding.
[2017-10-04 13:09] LABS: Albumin 3.4 g/dL (3.4-5.0); Bilirubin Direct 0.2 mg/dL (0-0.2); Bilirubin Total 0.7 mg/dL (0.2-1.0); Magnesium 2.2 mg/dL (1.8-2.4); Phosphorus 3.6 mg/dL (2.5-4.9); Potassium 4.1 mmol/L (3.5-5.1); Protein, Total 7.8 g/dL (6.4-8.2)
[2017-10-04] MEDS: D5 0.45 NS 1,000 ML IV SCH (13:15)
[2017-10-04] MEDS ORDERED: D50W 25 GM/50 ML SYRINGE IV PRN (13:46)
[2017-10-04] MEDS ORDERED: GLUCAGON 1 MG/VIAL IM PRN (13:46)
[2017-10-04] MEDS: LEVALBUTEROL 1.25 MG/3 ML NEB IH SCH ×2 (13:51→20:17)
[2017-10-04] MEDS: IPRATROPIUM BROM 0.5MG/2.5ML IH SCH ×2 (13:51→20:17)
[2017-10-04] MEDS ORDERED: PNEUMOCOCCAL VACCINE 0.5 ML IMVAC ONE (14:00)
[2017-10-04] MEDS: PROMETHAZINE 25 MG/ML VIAL IV PRN (14:19)
--- NOTE | 2017-10-04 15:26 | RAD REPORT ---
EXAM DESCRIPTION: MRI - Cholangiogram - 10/04/2017 3:06 pm CLINICAL HISTORY: intractable n/v Abdominal pain COMPARISON: Abdomen Pelvis W Contrast dated 10/03/2017 FINDINGS: Three-dimensional MRCP was performed using maximum intensity projection reconstruction on the same work station. Mild intrahepatic biliary tree dilatation. The common bile duct is dilated to 8-9 mm, likely related to reservoir effect. No retained stone, mass or stricture. Pancreatic duct is mildly prominent. Cholecystectomy. Limited T2 sequences through the abdomen demonstrates no bulky adenopathy, significant free fluid or abscess. IMPRESSION: No evidence of a common bile duct stricture, mass or retained stone. The degree of commo n duct dilatation is felt to be within the limits of a reservoir effect from prior cholecystectomy.
[2017-10-04 15:59] LABS: Urine Appearance CLEAR; Urine Blood TRACE (NEG); Urine Color DK YELLOW; Urine Glucose NEGATIVE (NEG); Urine Protein NEGATIVE (NEG); Urine Specific Gravity >=1.030 (1.005-1.030); Urine pH 5.5 (5.0-7.0)
[2017-10-04 16:11] LABS: Urine Microscopic Reflex ORDER UMIC
[2017-10-04] MEDS ORDERED: INSULIN -REGULAR HUMAN 50 UNIT/0.5 ML ML SQ SCH (16:30)
[2017-10-04 16:43] LABS: Urine Amorphous Sediment 2+ /HPF (NONE SEEN); Urine Bacteria <20 /HPF (<20); Urine Bilirubin NEGATIVE (NEG); Urine Culture Reflex Order NOT NEEDED; Urine RBC <5 /HPF (NONE SEEN)
--- NOTE | 2017-10-04 18:36 | EKG ---
Test Date: 2017-10-04 Test Time: 13:55:18 Stitcher Tape Controlled Machine: KEVIN MEASUREMENT RESULTS: Intervals: Rate: 54 IL: 176 QRSD: 106 QT: 478 QTc: 453 [place]: P: 76 IL: 176 QRS: 4 T: 149 INTERPRETIVE STATEMENTS: Sinus bradycardia with occasional premature ventricular complexes Inferior infarct, age undetermined ST & T wave abnormality, consider lateral ischemia Abnormal ECG Compared to ECG 09/21/2017 12:56:11 Ventricular premature complex(es) now present Sinus rhythm no longer present Myocardial infarct finding still present Electronically Signed On 10-04-17 18:36:07 CDT by Alcides Choe
[2017-10-05] MEDS: IPRATROPIUM BROM 0.5MG/2.5ML IH SCH ×4 (01:55→20:15)
[2017-10-05] MEDS: LEVALBUTEROL 1.25 MG/3 ML NEB IH SCH ×4 (01:55→20:15)
[2017-10-05 05:10] LABS: Absolute Lymphocytes (CBC) 1.4 K/uL (0.7-4.9); Absolute Monocytes 0.6 K/uL (0.1-1.3); Absolute Neutrophil 5.6 K/uL (1.8-8.0); Basophils % 0.7 % (0-1.3); Eosinophils % 1.4 % (0-4.4); Hematocrit 36.3 % (36.0-45.0); Lymphocytes % 17.8 % (15.3-44.8); MCH 31.7 pg (27.0-35.0); MCV 90.7 fL (80-100); MPV 9.2 fL (7.6-11.3); RBC Red Blood Cell Count 4.01 M/uL (3.86-4.86)
[2017-10-05] MEDS: D5 0.45 NS 1,000 ML IV SCH ×2 (05:39→20:37)
[2017-10-05 05:41] LABS: Magnesium 2.2 mg/dL (1.8-2.4); Potassium 3.4 mmol/L (3.5-5.1)
[2017-10-05] MEDS: KCL 20 MEQ/100 mL IVPB 20 MEQ/100 ML BAG IV SCH ×2 (06:19→10:45)
[2017-10-05] MEDS ORDERED: ALBUTEROL 2.5 MG/3 ML NEB SOL NEB PRN (06:55)
[2017-10-05] MEDS ORDERED: VENLAFAXINE HCL XR 37.5MG CAP PO SCH (09:00)
[2017-10-05] MEDS ORDERED: PANTOPRAZOLE 40 MG INJ IV SCH (09:00)
[2017-10-05] MEDS: ENOXAPARIN 40 MG/0.4 ML SQ SCH (09:23)
[2017-10-05] MEDS: SODIUM CHLORIDE 0.9% 10ML INJ IV SCH (09:26)
--- NOTE | 2017-10-05 09:31 | RAD REPORT ---
EXAM DESCRIPTION: MRI - MRA Abdomen W/Wo Cont - 10/05/2017 8:17 am CLINICAL HISTORY: EVALUATE FOR MES. ISCHEMIA. SEVERE PAIN. COMPARISON: Cholangiogram dated 10/04/2017; Abdomen Pelvis W Contrast dated 10/03/2017 FINDINGS: Three-dimensional MRA of the abdominal aorta visceral arteries was performed using maximum intensity projection reconstruction on the same workstation. Multifocal atheromatous narrowing is seen involving the infrarenal abdominal aorta. No evidence of ab dominal aortic aneurysm or dissection. Moderate narrowing of the ostium of the celiac axis is noted likely attributable to atherosclerotic p laque. No occlusion or high-grade stenosis of the celiac trunk or distal vessel seen. The SMA ostium is widely patent. The SHARAD is diminutive but patent. Mild to moderate atherosclerotic narrowing of both ostia of the renal artery seen, slightly worse on the left. Small bilateral accessory renal arteries are noted. No acute solid organ abnormality seen. No bulky adenopathy or fluid collections in the abdomen. IMPRESSION: Multifocal atheromatous plaquing is noted involving the infrarenal abdominal aorta. No e vidence of high-grade stenosis or occlusion of a visceral artery seen.
--- NOTE | 2017-10-05 13:13 | P.PN ---
Subjective Date of Service: 10/05/17 Chief Complaint: EPIG PAIN, CHEST PAIN Subjective: Improving (MS. SUTTON IS 66 YEARS OLD LADY WITH RECENT SURGERY FOR LUNG CANCER WITH PARTIAL R SIDE LOBECTOMY.) I PLACED HER IN HOSPITAL YESTERDAY SHE DID NOT GET BETTER ON OUTPATIENT BASIS. SHE KEPT ON VOMITING AND HAS SEVERE EPIG PAIN SO I DECIDED TO ADMIT HER. I CONSULTED DARYL AND GI MD. Review of Systems 10-point ROS is otherwise unremarkable Cardiovascular: Chest Pain (BETTER SSHE SAYS) Gastrointestinal: Abdominal Pain (EPIG), No Distention Physical Examination - Vital Signs Temperature: 98.4 F Blood Pressure: 150/63 Pulse: 68 Respirations: 18 Pulse Ox (%): 97 - Physical Exam General: Alert, Moderate distress HEENT: Atraumatic, PERRLA, EOMI Neck: Supple, JVD not distended Respiratory: Clear to auscultation bilaterally, Normal air movement Cardiovascular: Regular rate/rhythm, Normal S1 S2 Gastrointestinal: Normal bowel sounds, No tenderness Musculoskeletal: No tenderness Integumentary: No rashes Neurological: Normal speech, Normal tone, Normal affect Lymphatics: No axilla or inguinal lymphadenopathy - Studies Laboratory Data (last 24 hrs) 10/05/17 13:00: Potassium Cancelled 10/05/17 12:00: Potassium Cancelled 10/05/17 04:32: Sodium 139, Potassium 3.4 L, BUN 27 H, Creatinine 1.20, Glucose 111 H, Magnesium 2.2 10/05/17 04:32: WBC 7.7, Hgb 12.7, Hct 36.3, Plt Count 169 Medications List Reviewed: Yes Assessment And Plan - Current Problems (Diagnosis) (1) Continuous severe abdominal pain Current Visit: Yes Status: Acute Plan: WE DID FULL EVAL CHEST CT DONE DAY BEFORE NEG ABD CT SCAN- MILD BILIARY DILATATION. COLON NEGATIVE PER DR ROSAS MRCP NEGATIVE AND DID MRA ABDOMEN A LAST RESORT SHE IS SMOKER HAS RA AND NOW LUNG CANCER. NEG FOR THROMBUS HAS ASCVD POS EXPECTED DR. BRITO SAYS NOT SURGICAL DR Adam HERRERA TO DO EGD EGD WAS JUST DONE ALSO IN [facility] FOR SUCH INCESSANT VOMITING. (2) Intractable vomiting Onset Date: 10/05/17 Current Visit: No Status: Chronic Plan: STOP VENLAFAXINE I AM NOT SURE IF THIS IS ADDING. THIS CAN BE FROM CYCLICAL VOMITING. SHE HAS SOME PSYCH ISSUES.
[2017-10-05] MEDS ORDERED: CLIDINIUM/CHLORDIAZEPOX 1 CAP PO PRN (13:22)
--- NOTE | 2017-10-05 13:25 | CON ---
Date of Consultation: 10/04/2017 Reason: Abdominal pain and intractable nausea and vomiting. History Of Present Illness: The patient is a 66-year-old female with multiple medical problems, who was admitted yesterday from Dr. Mullins's office with persistent nausea and vomiting. No diarrhea. No blood in her stool. However she does complain of some constipation. She had a CT of the abdomen an d pelvis which was negative. No dysuria or hematuria. No sore throat, runny nose, cough, headaches, or dizziness. No chest pain at this time. Please note, the patient has a history of poorly differe ntiated adenocarcinoma of recently and she was recently admitted for COPD exacerbation. Review of Systems: Otherwise unremarkable. Past Medical History: Significant for rheumatoid arthritis, lung cancer, osteoarthritis, history of pneumonia. Past Surgical History: Significant for hysterectomy, right upper lobectomy, CABG, cholecystectomy. Allergies: INCLUDE CODEINE AND PENICILLIN. Social History: She does smoke. Should she has been counseled by Dr. Mullins. Does not drink. Family History: Noncontributory. Physical Examination: Vital Signs: Stable. She is afebrile. General: She is awake, alert, and oriented x3. Head and neck: Cranial nerves 2 through 12 are grossly within normal limits. No neck masses. No JV D. Throat clear. Neck: Supple. Chest: Clear. Heart: S1, S2. Abdomen: Soft, nondistended. Positive bowel sounds. Mild right upper quadrant tenderness. No rebo und, rigidity, or guarding. Extremities: Adequately perfused. Nontender. Neuro: Nonfocal. Diagnostic Data: White count is 7.7. There is no left shift this morning. INR is 1.02. Chemistry reviewed. There is slight hypokalemia and MRCP reviewed, essentially is unremarkable. There is no e vidence of stricture, mass, or a retained stone in the common bile duct and the CT of the abdomen and pelvis was essentially unremarkable as well. Assessment: Abdominal pain, intractable nausea, and vomiting. Recommendation: Parenteral management of the nausea and vomiting as well as the pain. The patient w ill need a GI evaluation for an EGD and will await the results of the MRA of the abdomen to evaluate the blood vessels to make sure she does not have any vascular issues and will make further recommenda tions after that. plan of care discussed with Dr. Mullins. /MODL Voice ID: [id number] Report ID: [id number]
[2017-10-05] MEDS ORDERED: PROPOFOL 200 MG/20 ML VIAL IV ONE (16:15)
[2017-10-05] MEDS ORDERED: LIDOCAINE 1% MPF 2 ML AMPULE ONE (16:15)
[2017-10-05] MEDS ORDERED: SODIUM CHLORIDE 0.9% 10ML INJ IV PRN (16:58)
[2017-10-05] MEDS: SUCRALFATE 1 GM TABLET PO SCH (20:31)
[2017-10-05] MEDS: ZOFRAN 4 MG PO PRN (20:31)
[2017-10-05] MEDS: PANTOPRAZOLE 40 MG INJ IVP SCH (20:31)
[2017-10-05] MEDS: ENSURE ENLIVE 237 ML CAN PO SCH (20:39)
[2017-10-05] MEDS ORDERED: POTASSIUM CL SA 10 MEQ TAB PO ONE (21:39)
[2017-10-06] MEDS: IPRATROPIUM BROM 0.5MG/2.5ML IH SCH ×2 (01:23→08:39)
[2017-10-06] MEDS: LEVALBUTEROL 1.25 MG/3 ML NEB IH SCH ×2 (01:23→08:39)
[2017-10-06] MEDS: ZOFRAN 4 MG PO PRN (01:51)
--- NOTE | 2017-10-06 03:17 | OP ---
Surgeon: Chaparro Howard MD Procedure Performed: Esophagogastroduodenoscopy. Indication For Procedure: Nausea, vomiting, chest pain. Plan For Anesthesia: Monitored anesthesia care. Complexity: Average. Technique: After obtaining informed consent from the patient and explaining risks and complications which include, but are not limited to bleeding, infection, perforation, and anesthesia complication. Patient was placed in left lateral position and sedation was given. From then on, the scope was adv anced through the mouth and carefully guided up till the second portion of the duodenum. After the c ompletion of examination, the scope and equipment were withdrawn and procedure terminated in a safe m jhonny. Findings: Esophagus: No gross lesion seen in the upper and mid esophagus; however in the distal eso phagus, a small hiatal hernia was visualized. Stomach: There was evidence of [id number] hemorrhagic gastritis. However, there was no ulcera tion visible. Areas of patchy erythema were seen. Biopsies taken from the antrum and body. 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 Duodenum: The bulb and second portion appeared normal. Complications: None. Tolerance To Anesthesia: Excellent. Postoperative Diagnoses: Hiatal hernia, hemorrhagic gastritis, small gastric varices. Plan: 1.Await pathology results. 2.Continue PPI. We will add Carafate for the hemorrhagic gastritis. However, the findings on the u pper endoscopy do not explain the patient's symptoms. The symptoms likely do not seem to be related to GI pathology. I would recommend evaluating cardiovascular, respiratory, and musculoskeletal etiol ogies. She does have a history of lung cancer. No further workup from GI at this point. US/MODL Voice ID: [id number] Report ID: [id number]
[2017-10-06] MEDS: D5 0.45 NS 1,000 ML IV SCH (05:05)
[2017-10-06 05:47] LABS: Absolute Lymphocytes (CBC) 1.3 K/uL (0.7-4.9); Absolute Monocytes 0.4 K/uL (0.1-1.3); Absolute Neutrophil 4.4 K/uL (1.8-8.0); Basophils % 0.5 % (0-1.3); Eosinophils % 1.6 % (0-4.4); Hematocrit 33.5 % (36.0-45.0); Lymphocytes % 20.3 % (15.3-44.8); MCH 31.2 pg (27.0-35.0); MCV 91.2 fL (80-100); Monocytes % 6.9 % (3.3-12.3); RBC Red Blood Cell Count 3.68 M/uL (3.86-4.86)
[2017-10-06 06:00] LABS: Magnesium 1.9 mg/dL (1.8-2.4); Potassium 3.6 mmol/L (3.5-5.1)
[2017-10-06] MEDS ORDERED: POTASSIUM CL SA 10 MEQ TAB PO ONE (06:02)
[2017-10-06] MEDS: PROMETHAZINE 25 MG/ML VIAL IV PRN (06:22)
[2017-10-06 07:43] VITALS: BP 102/57; TEMP 97.6
[2017-10-06] MEDS: SUCRALFATE 1 GM TABLET PO SCH (08:40)
[2017-10-06] MEDS: SODIUM CHLORIDE 0.9% 10ML INJ IV SCH (08:40)
[2017-10-06] MEDS: PANTOPRAZOLE 40 MG INJ IVP SCH (08:40)
[2017-10-06] MEDS: ENOXAPARIN 40 MG/0.4 ML SQ SCH (08:40)
[2017-10-06] MEDS ORDERED: CLIDINIUM/CHLORDIAZEPOX 1 CAP PO SCH (09:00)
[2017-10-06] MEDS: ENSURE ENLIVE 237 ML CAN PO SCH (09:00)
--- NOTE | 2017-10-06 10:07 | P.DS ---
Admission Date: 10/04/17 Discharge Date: 10/06/17 Disposition: ROUTINE DISCHARGE Discharge Condition: FAIR Reason for Admission: EPIG PAIN, CHEST PAIN - Problems (1) Continuous severe abdominal pain Current Visit: Yes Status: Acute (2) Intractable vomiting Onset Date: 10/05/17 Current Visit: No Status: Chronic Hospital Course: . MS. SUTTON HAS INTRACATABLE PAIN IN EPIG REGION AND NAUSEA , VOMITING OFF AND ON FOR MONTHS. WE STOPPED EFFEXOR WITH [facility]AM[facility] BERGMAN SIMILAR ISSUE. SHE JUST HAD LUNG CANCER SURGERY AND SINCE THEN ENDS UP IN HOSPITAL TWICE. ONCE FOR COPD AND ONCE NOW FOR THIS ISSUE. SHE IS HIGH RISK SO I CHECKED CT SCAN, MRCP, MR ANGIOGRAM AND RULED OUT PANCREATIC ISSUES, STONES OR CLOTS. EGD SHOWS SOME GASTRITIS BUT NOTHING TO EXPLAIN THE SEVERITY OF PAIN. I SUSPECT THERE IS PSYCHIATRIC REASON FOR THIS. I TALKED TO DAUGHTER AND ASKED THAT SHE CANTAKE SECOND OPINION IN [place] WHERE SHE GOES FOR LUNG CANCER. I GAVE HER LIBRAX TO RELIEVE SYMPTOMS AND SHE SAYS ALL DAY SHE HAD NO PAIN BUT LAST NIGHT SHE HAD IT AGAIN. SHE IS STABLE FOR HOME. Vital Signs/Physical Exam: Temp Pulse Resp BP Pulse Ox 97.6 F 70 18 102/57 L 100 10/06/17 07:42 10/06/17 07:42 10/06/17 07:42 10/06/17 07:42 10/06/17 07:42 Laboratory Data at Discharge: WBC 6.2 K/uL (4.3-10.9) D 10/06/17 05:29 Hgb 11.5 g/dL (12.0-15.0) L 10/06/17 05:29 Hct 33.5 % (36.0-45.0) L 10/06/17 05:29 Plt Count 145 K/uL (152-406) L 10/06/17 05:29 PT 12.0 SECONDS (9.5-12.5) 10/04/17 12:26 INR 1.02 10/04/17 12:26 APTT 33.8 SECONDS (24.3-36.9) 10/04/17 12:26 Sodium 137 mmol/L (136-145) 10/06/17 05:29 Potassium 3.6 mmol/L (3.5-5.1) 10/06/17 05:29 BUN 13 mg/dL (7-18) 10/06/17 05:29 Creatinine 0.90 mg/dL (0.55-1.3) 10/06/17 05:29 Glucose 108 mg/dL (74-106) H 10/06/17 05:29 Phosphorus 3.6 mg/dL (2.5-4.9) 10/04/17 12:26 Magnesium 1.9 mg/dL (1.8-2.4) 10/06/17 05:29 Total Bilirubin 0.7 mg/dL (0.2-1.0) 10/04/17 12:26 AST 13 U/L (15-37) L 10/04/17 12:26 ALT 18 U/L (12-78) 10/04/17 12:26 Alkaline Phosphatase 94 U/L (45-117) 10/04/17 12:26 Amylase 36 U/L (25-115) 10/04/17 12:26 Lipase 71 U/L (73-393) L 10/04/17 12:26 Home Medications: Atorvastatin Calcium 10 mg PO BEDTIME 09/21/17 Metoprolol Tartrate 12.5 mg PO BID 09/21/17 Oxybutynin Chloride 5 mg PO BID 09/21/17 Oxycodone HCl [Oxycodone HCl ER] 10 mg PO QID 09/21/17 Albuterol Neb [Proventil 0.083% Neb Soln] 2.5 mg NEB Q4H PRN amp 09/22/17 Gabapentin [Gralise] 300 mg PO TID 09/22/17 Clidinium/Chlordiazepox [Librax*] 1 cap PO Q6HR #40 cap 10/06/17 Pantoprazole [Protonix Tab*] 40 mg PO DAILY #30 tab 10/06/17 Promethazine Suppos [Phenergan -Suppos*] 12.5 mg RC Q6H #30 supp 10/06/17 New Medications: Clidinium/Chlordiazepox [Librax*] 1 cap PO Q6HR #40 cap Pantoprazole [Protonix Tab*] 40 mg PO DAILY #30 tab Promethazine Suppos [Phenergan -Suppos*] 12.5 mg RC Q6H #30 supp Diet: [place]
[2017-10-06 10:56] VITALS: O2SAT 95
[2017-10-06] MEDS ORDERED: CLIDINIUM/CHLORDIAZEPOX 1 CAP PO ONE (11:00)
== END 2017-10-06 11:17 | disposition home or self-care (01) ==
LOC: 4TH 11:29
PROVIDERS: ADMIT Internal Medicine; ATTEND Internal Medicine
PROC: 0DB68ZX Excision of Stomach, Via Natural or Artificial Opening Endoscopic, Diagnostic (ICD-10-PCS; principal; 2017-10-05 15:30)
DX: G43.A1 Cyclical vomiting, in migraine, intractable (principal); R10.9 Unspecified abdominal pain; C34.90 Malignant neoplasm of unspecified part of unspecified bronchus or lung; K29.71 Gastritis, unspecified, with bleeding; K44.9 Diaphragmatic hernia without obstruction or gangrene; I86.4 Gastric varices; M06.9 Rheumatoid arthritis, unspecified; F17.210 Nicotine dependence, cigarettes, uncomplicated; Z88.0 Allergy status to penicillin
CPT/HCPCS: 36415 ×2; 43239; 71046; 74181; 80048 ×3; 80076; 82150; 82962 ×3; 83690; 83735 ×3; 84100; 84132; 85025 ×3; 85610; 85730; 87086; 87088; 88305; 88312; 93005; A9577; C8902; C9113 ×3; G0378; G0379; J1170; J1650; J2001; J2405; J2550 ×2; 81003; 81015